=== PATIENT | female | born 1955 | race Caucasian/White ===

== ENCOUNTER 2019-07-09 13:44 | Outpatient (CLI) | payer MEDICARE, SELFPAY ==
[2019-07-09 16:53] LABS: Free T4 Free Thyroxine 0.86 ng/mL (0.78-2.19)
[2019-07-09 17:08] LABS: Thyroid Stimulating Hormone 0.254 uIU/mL (0.465-4.680)
== END 2019-07-09 13:45 | disposition home or self-care (01) ==
LOC: ANHWCLAB 13:51
PROVIDERS: PCP Family Medicine
DX: E05.90 Thyrotoxicosis, unspecified without thyrotoxic crisis or storm (principal)
CPT/HCPCS: 36415; 84439; 84443; 84481

== ENCOUNTER 2019-09-17 09:53 | Outpatient (CLI) | payer MEDICARE, SELFPAY ==
[2019-09-17 10:56] LABS: Free T4 Free Thyroxine 1.02 ng/mL (0.78-2.19)
== END 2019-09-17 09:54 | disposition home or self-care (01) ==
PROVIDERS: PCP Family Medicine; Visit Provider Internal Medicine Endocrinology, Diabetes & Metabolism
DX: E05.90 Thyrotoxicosis, unspecified without thyrotoxic crisis or storm (principal)
CPT/HCPCS: 36415; 84439; 84443

== ENCOUNTER 2019-11-12 10:03 | Outpatient (CLI) | payer MEDICARE, SELFPAY ==
[2019-11-12 11:45] LABS: Free T4 Free Thyroxine 1.24 ng/mL (0.78-2.19)
== END 2019-11-12 10:04 | disposition home or self-care (01) ==
PROVIDERS: PCP Family Medicine; Visit Provider Internal Medicine Endocrinology, Diabetes & Metabolism
DX: E05.90 Thyrotoxicosis, unspecified without thyrotoxic crisis or storm (principal)
CPT/HCPCS: 36415; 84439; 84443

== ENCOUNTER 2020-02-17 10:46 | Outpatient (CLI) | payer MEDICARE, SELFPAY ==
[2020-02-17 12:46] LABS: Free T4 Free Thyroxine 1.01 ng/mL (0.78-2.19)
[2020-02-21 08:13] LABS: Triiodothyronine T3 Free 3.2 pg/mL (2.3-4.2)
== END 2020-02-17 10:47 | disposition home or self-care (01) ==
PROVIDERS: PCP Family Medicine; Visit Provider Internal Medicine Endocrinology, Diabetes & Metabolism
DX: E05.90 Thyrotoxicosis, unspecified without thyrotoxic crisis or storm (principal); E04.9 Nontoxic goiter, unspecified
CPT/HCPCS: 36415; 84439; 84443; 84481

== ENCOUNTER 2020-03-23 12:50 | Outpatient (CLI) | payer MEDICARE, SELFPAY ==
[2020-03-25 14:37] LABS: Triiodothyronine T3 Free 3.2 pg/mL (2.3-4.2)
[2020-03-28 13:37] LABS: Thyroid Stimulating Immunoglob <89 % baseline (<140)
== END 2020-03-23 12:51 | disposition home or self-care (01) ==
LOC: ANHLAB 12:52
PROVIDERS: PCP Family Medicine; Visit Provider Internal Medicine Endocrinology, Diabetes & Metabolism
DX: E05.90 Thyrotoxicosis, unspecified without thyrotoxic crisis or storm (principal); E03.9 Hypothyroidism, unspecified; E04.9 Nontoxic goiter, unspecified
CPT/HCPCS: 36415; 84439; 84443; 84445; 84481

== ENCOUNTER 2020-05-13 10:44 | Outpatient (CLI) | payer MEDICARE, SELFPAY ==
[2020-05-13 11:26] LABS: Hematocrit 37.7 % (37.0-47.0); Hemoglobin 12.5 g/dL (12.0-15.0); Mean Corpuscular HGB Conc 33.2 g/dl (32-36); Mean Corpuscular Hemoglobin 30.5 pg (26-34); Mean Platelet Volume 9.3 fl (7.4-10.4); Platelet Count Result 347 k/mm3 (150-375); Red Cell Distribution Width 13.2 % (11.5-14.5)
[2020-05-13 11:29] LABS: Add Urine Microscopic? YES; Appearance Urine Cloudy (Clear); Bacteria Urine Trace /hpf; Bilirubin Urine Negative (Negative); Blood Urine Negative (Negative); Color Urine Yellow (Yellow); Glucose Urine UA Negative (Negative); Ketones Urine Negative (Negative); Leukocyte Esterase Ur 2+ LEU/UL (NEGATIVE); Mucus Urine Rare /lpf; Nitrate Urine Negative (Negative); Protein Urine Negative (Negative); RBC Urine 0-2 /hpf (0-2); Specific Grav Ur 1.018 (1.001-1.035); Squamous Epithelial Cell Urine Many /hpf (Few); Urobilinogen Urine Negative mg/dL (<2.0)
[2020-05-13 11:46] LABS: Alanine Aminotransferase 15 U/L (4-35); Albumin Level 3.8 g/dL (3.5-5.1); Alkaline Phosphatase 45 U/L (38-126); Anion Gap 6 mmol/L (8-16); Aspartate Amino Transferase 25 U/L (14-36); Bilirubin,Total 0.5 mg/dL (0.2-1.3); Blood Urea Nitrogen 14 mg/dL (7-17); Calcium 8.6 mg/dL (8.4-10.2); Carbon Dioxide 28 mmol/L (22-30); Chloride 107 mmol/L (98-107); Cholesterol 174 mg/dL (0-200); Estimated Glomerular Filt Rate > 60; Glucose 94 mg/dL (65-105); HDL Direct 46 mg/dL; Sodium 141 mmol/L (137-145); Triglycerides 111 mg/dL (<150)
[2020-05-13 11:57] LABS: LDL Cholesterol Direct 101 mg/dL
[2020-05-13 12:44] LABS: Free T4 Free Thyroxine 1.13 ng/mL (0.78-2.19)
== END 2020-05-13 10:45 | disposition home or self-care (01) ==
PROVIDERS: PCP Family Medicine; Visit Provider Internal Medicine Endocrinology, Diabetes & Metabolism
DX: E03.9 Hypothyroidism, unspecified (principal); R53.83 Other fatigue; D64.9 Anemia, unspecified; E78.2 Mixed hyperlipidemia
CPT/HCPCS: 36415; 80053; 80061; 81001; 84439; 84443; 85027

== ENCOUNTER 2020-08-11 10:05 | Outpatient (CLI) | payer MEDICARE, SELFPAY ==
[2020-08-11 11:45] LABS: Free T4 Free Thyroxine 1.25 ng/mL (0.78-2.19)
== END 2020-08-11 10:06 | disposition home or self-care (01) ==
LOC: ANHLAB 10:13
PROVIDERS: PCP Family Medicine; Visit Provider Internal Medicine Endocrinology, Diabetes & Metabolism
DX: E03.9 Hypothyroidism, unspecified (principal); E05.90 Thyrotoxicosis, unspecified without thyrotoxic crisis or storm
CPT/HCPCS: 36415; 84439; 84443

== ENCOUNTER 2020-09-07 14:32 | Outpatient (CLI) | payer MEDICARE, SELFPAY ==
[2020-09-07 15:41] LABS: Rheumatoid Factor < 8.6 IU/ML (<12)
[2020-09-13 09:16] LABS: Anti Cyclic Citrullinated Pept <16 Units (<20)
== END 2020-09-07 14:33 | disposition home or self-care (01) ==
PROVIDERS: PCP Family Medicine; Visit Provider Family Medicine
DX: M25.50 Pain in unspecified joint (principal)
CPT/HCPCS: 36415; 86200; 86430

== ENCOUNTER 2020-10-05 14:49 | Outpatient (CLI) | payer MEDICARE, SELFPAY ==
--- NOTE | ~2020-10-05 | XR_ITS ---
EXAMINATION: XR hand BI arthritis min 3V EXAM DATE: 10/05/2020 15:17 INDICATION: Bilateral hand pain, osteoarthritis. TECHNIQUE: Right hand frontal, lateral and oblique projections obtained and reviewed. Left hand fron lisa, lateral and oblique projections obtained and reviewed. Catchers projection of both hands. There is no prior study for comparison. FINDINGS: Right hand: There is severe 1st carpometacarpal primary osteoarthritis. Otherwise mild to moderate p olyarticular osteoarthritis. There is ulnar minus variance. There are no bony erosions identified. Th ere are no acute fractures identified. Left hand: There is severe 1st carpometacarpal primary osteoarthritis. Otherwise mild to moderate lion yarticular primary osteoarthritis. There is ulnar minus variance. There are no bony erosions identifi ed. There are no acute fractures identified. IMPRESSION: 1. Bilateral hand polyarticular osteoarthritis, severe at the 1st carpometacarpal joints. 2. Bilateral ulnar minus variance. Reviewed, dictated and finalized at location A. IMPRESSION: 1. Bilateral hand polyarticular osteoarthritis, severe at the 1st carpometacar pal joints. 2. Bilateral ulnar minus variance.
== END 2020-10-05 14:50 | disposition home or self-care (01) ==
LOC: ANHIMG 14:57
PROVIDERS: PCP Family Medicine; Visit Provider Plastic Surgery
DX: M19.041 Primary osteoarthritis, right hand (principal); M19.042 Primary osteoarthritis, left hand
CPT/HCPCS: 73130

== ENCOUNTER 2021-02-22 08:15 | Outpatient (CLI) | payer MEDICARE, SELFPAY ==
[2021-02-22 08:39] LABS: Hemoglobin 12.6 g/dL (12.0-15.0); Mean Corpuscular HGB Conc 32.3 g/dl (32-36); Mean Corpuscular Hemoglobin 29.2 pg (26-34); Mean Corpuscular Volume 90.5 fl (80-100); Mean Platelet Volume 9.4 fl (7.4-10.4); Platelet Count Result 288 k/mm3 (150-375); Red Blood Count 4.31 M/mm3 (4.2-5.4); Red Cell Distribution Width 13.8 % (11.5-14.5); White Blood Count 5.9 K/mm3 (4.5-10.0)
[2021-02-22 08:46] LABS: Add Urine Microscopic? YES; Appearance Urine Clear (Clear); Bilirubin Urine Negative (Negative); Blood Urine 1+ (Negative); Color Urine Yellow (Yellow); Glucose Urine UA Negative (Negative); Ketones Urine Negative (Negative); Leukocyte Esterase Ur 1+ LEU/UL (NEGATIVE); Mucus Urine Rare /lpf; Nitrate Urine Negative (Negative); Protein Urine Negative (Negative); Specific Grav Ur 1.017 (1.001-1.035); Squamous Epithelial Cell Urine Few /hpf (Few); Urobilinogen Urine Negative mg/dL (<2.0); WBC Urine 0-3 /hpf (0-3)
[2021-02-22 08:53] LABS: Alanine Aminotransferase 21 U/L (4-35); Albumin Level 4.4 g/dL (3.5-5.1); Alkaline Phosphatase 52 U/L (38-126); Anion Gap 8 mmol/L (8-16); Aspartate Amino Transferase 28 U/L (14-36); Bilirubin,Total 0.6 mg/dL (0.2-1.3); Blood Urea Nitrogen 15 mg/dL (7-17); Carbon Dioxide 28 mmol/L (22-30); Chloride 105 mmol/L (98-107); Cholesterol 160 mg/dL (0-200); Estimated Glomerular Filt Rate > 60; Glucose 102 mg/dL (65-110); HDL Direct 52 mg/dL; Potassium 4.2 mmol/L (3.4-5.0); Sodium 141 mmol/L (137-145); Triglycerides 74 mg/dL (<150)
[2021-02-22 09:03] LABS: LDL Cholesterol Direct 86 mg/dL
[2021-02-22 09:22] LABS: Free T4 Free Thyroxine 1.54 ng/mL (0.78-2.19)
[2021-02-22 09:23] LABS: Thyroid Stimulating Hormone < 0.015 uIU/mL (0.465-4.680); Total Triiodothyronine (T3) 1.58 NG/ML (0.97-1.69)
== END 2021-02-22 08:16 | disposition home or self-care (01) ==
PROVIDERS: PCP Family Medicine; Referring Provider Family Medicine; Visit Provider Internal Medicine Endocrinology, Diabetes & Metabolism
DX: E05.90 Thyrotoxicosis, unspecified without thyrotoxic crisis or storm (principal); I10 Essential (primary) hypertension; R53.83 Other fatigue; Z00.00 Encounter for general adult medical examination without abnormal findings
CPT/HCPCS: 36415; 80053; 80061; 81001; 84439; 84443; 84480; 85027

== ENCOUNTER 2021-04-26 10:14 | Outpatient (CLI) | payer MEDICARE, SELFPAY ==
[2021-04-26 11:19] LABS: Free T4 Free Thyroxine 1.22 ng/mL (0.78-2.19)
[2021-04-26 11:26] LABS: Thyroid Stimulating Hormone < 0.015 uIU/mL (0.465-4.680)
== END 2021-04-26 10:15 | disposition home or self-care (01) ==
PROVIDERS: PCP Family Medicine; Visit Provider Internal Medicine Endocrinology, Diabetes & Metabolism
DX: E05.90 Thyrotoxicosis, unspecified without thyrotoxic crisis or storm (principal)
CPT/HCPCS: 36415; 84439; 84443

== ENCOUNTER 2021-05-31 09:12 | Outpatient (CLI) | payer MEDICARE, SELFPAY ==
[2021-05-31 10:51] LABS: Free T4 Free Thyroxine 0.91 ng/mL (0.78-2.19)
[2021-06-04 13:22] LABS: Triiodothyronine T3 Free 3.2 pg/mL (2.3-4.2)
== END 2021-05-31 09:13 | disposition home or self-care (01) ==
PROVIDERS: PCP Family Medicine; Visit Provider Internal Medicine Endocrinology, Diabetes & Metabolism
DX: E05.90 Thyrotoxicosis, unspecified without thyrotoxic crisis or storm (principal); E04.9 Nontoxic goiter, unspecified
CPT/HCPCS: 36415; 84439; 84443; 84481

== ENCOUNTER 2021-08-24 11:22 | Outpatient (CLI) | payer MEDICARE, SELFPAY ==
[2021-08-24 13:19] LABS: Total Triiodothyronine (T3) 1.19 NG/ML (0.97-1.69)
[2021-08-24 20:20] LABS: Free T4 Free Thyroxine 1.17 ng/mL (0.78-2.19)
== END 2021-08-24 11:23 | disposition home or self-care (01) ==
PROVIDERS: PCP Family Medicine; Visit Provider Internal Medicine Endocrinology, Diabetes & Metabolism
DX: E05.90 Thyrotoxicosis, unspecified without thyrotoxic crisis or storm (principal)
CPT/HCPCS: 36415; 84439; 84443; 84480

== ENCOUNTER 2021-10-17 10:35 | Outpatient (CLI) | payer MEDICARE, SELFPAY ==
[2021-10-17 11:38] LABS: Total Triiodothyronine (T3) 1.25 NG/ML (0.97-1.69)
[2021-10-17 11:57] LABS: Free T4 Free Thyroxine 1.24 ng/mL (0.78-2.19)
== END 2021-10-17 10:36 | disposition home or self-care (01) ==
LOC: ANHLAB 10:36
PROVIDERS: PCP Family Medicine; Visit Provider Nurse Practitioner Family
DX: E05.90 Thyrotoxicosis, unspecified without thyrotoxic crisis or storm (principal)
CPT/HCPCS: 36415; 84439; 84443; 84480

== ENCOUNTER 2022-03-29 09:43 | Outpatient (CLI) | payer MEDICARE, SELFPAY ==
[2022-03-29 10:20] LABS: Basophils Absolute Auto 0.1 K/mm3 (0.0-0.1); Basophils Percent Auto 1.7 % (0.2-1.2); Eosinophils Absolute Auto 0.1 K/mm3 (0-0.3); Eosinophils Percent Auto 1.2 % (0-4.4); Hematocrit 39.8 % (37.0-47.0); Hemoglobin 12.9 g/dL (12.0-15.0); Immature Granulocyte Absolute 0.02 K/mm3 (0.00-0.031); Immature Granulocyte Percent A 0.3 % (0-0.5); Lymphocytes Percent Auto 26.8 % (18.3-44.2); Mean Corpuscular HGB Conc 32.4 g/dl (32-36); Mean Corpuscular Hemoglobin 29.9 pg (26-34); Mean Corpuscular Volume 92.1 fl (80-100); Mean Platelet Volume 9.5 fl (7.4-10.4); Monocytes Absolute Auto 0.4 K/mm3 (0.1-0.6); Monocytes Percent Auto 6.2 % (2.6-8.5); Neutrophils Absolute Auto 3.8 K/mm3 (1.3-6.7); Neutrophils Percent Auto 63.8 % (45.5-73.1); Platelet Count Result 351 k/mm3 (150-375); Red Blood Count 4.32 M/mm3 (4.2-5.4); Red Cell Distribution Width 13.8 % (11.5-14.5)
[2022-03-29 10:43] LABS: Appearance Urine Cloudy (Clear); Bilirubin Urine Negative (Negative); Blood Urine Trace-lysed (Negative); Color Urine Yellow (Yellow); Glucose Urine UA Negative (Negative); Ketones Urine Negative (Negative); Leukocyte Esterase Ur 2+ LEU/UL (NEGATIVE); Nitrate Urine Negative (Negative); Protein Urine Negative (Negative); Urobilinogen Urine 0.2 mg/dL (<2.0)
[2022-03-29 10:57] LABS: Bacteria Urine Trace /hpf; Mucus Urine Rare /lpf; Squamous Epithelial Cell Urine Occasional /hpf (Few); WBC Urine >75 /hpf (0-3)
[2022-03-29 11:22] LABS: Free T4 Free Thyroxine 1.15 ng/mL (0.78-2.19)
[2022-03-29 11:44] LABS: Add Urine Microscopic? YES
[2022-03-29 16:59] LABS: Alanine Aminotransferase 19 U/L (6-35); Albumin Level 4.4 g/dL (3.5-5.1); Alkaline Phosphatase 55 U/L (38-126); Anion Gap 8 mmol/L (8-16); Aspartate Amino Transferase 30 U/L (14-36); Bilirubin,Total 0.6 mg/dL (0.2-1.3); Blood Urea Nitrogen 18 mg/dL (7-17); Calcium 8.6 mg/dL (8.4-10.2); Carbon Dioxide 27 mmol/L (22-30); Chloride 103 mmol/L (98-107); Cholesterol 181 mg/dL (0-200); Estimated Glomerular Filt Rate > 60; Glucose 94 mg/dL (65-110); HDL Direct 50 mg/dL; Potassium 4.4 mmol/L (3.4-5.0); Sodium 138 mmol/L (137-145); Triglycerides 56 mg/dL (<150)
[2022-03-29 17:10] LABS: LDL Cholesterol Direct 97 mg/dL
[2022-03-29 17:30] LABS: Total Triiodothyronine (T3) 1.22 NG/ML (0.97-1.69)
== END 2022-03-29 09:44 | disposition home or self-care (01) ==
LOC: ANHLAB 09:45
PROVIDERS: PCP Family Medicine; Visit Provider Nurse Practitioner Family
DX: E05.90 Thyrotoxicosis, unspecified without thyrotoxic crisis or storm (principal); I10 Essential (primary) hypertension; E03.9 Hypothyroidism, unspecified; N39.0 Urinary tract infection, site not specified; E78.2 Mixed hyperlipidemia
CPT/HCPCS: 36415; 80053; 80061; 81001; 84439; 84443; 84480; 85025

== ENCOUNTER 2022-07-05 10:45 | Outpatient (CLI) | payer MEDICARE, SELFPAY ==
--- NOTE | ~2022-07-05 | XR_ITS ---
Clinical Indication: Relapsing polychondritis PA and lateral views of the chest: Comparison: None Findings: The lungs are clear, without evidence of focal consolidation or pleural effusion. Possible COPD. Cardiomediastinal silhouette is within normal limits. Bones and soft tissues are unremarkable. Impression: Clear lungs. Possible COPD. Reviewed, dictated and finalized at location . RINTENDENT SYSTEM OPERATION Impression: Clear lungs. Possible COPD.
== END 2022-07-05 10:46 | disposition home or self-care (01) ==
LOC: ANHIMG 10:48
PROVIDERS: PCP Family Medicine; Visit Provider Internal Medicine
DX: M94.1 Relapsing polychondritis (principal); M15.9 Polyosteoarthritis, unspecified; Z71.89 Other specified counseling; Z79.899 Other long term (current) drug therapy
CPT/HCPCS: 71046

== ENCOUNTER 2022-07-31 08:36 | Outpatient (CLI) | payer MEDICARE, SELFPAY ==
[2022-07-31 09:06] LABS: Hematocrit 34.3 % (37.0-47.0); Hemoglobin 11.3 g/dL (12.0-15.0); Mean Corpuscular HGB Conc 32.9 g/dl (32-36); Mean Corpuscular Hemoglobin 28.8 pg (26-34); Mean Corpuscular Volume 87.5 fl (80-100); Mean Platelet Volume 9.5 fl (7.4-10.4); Platelet Count Result 310 k/mm3 (150-375); Red Blood Count 3.92 M/mm3 (4.2-5.4); Red Cell Distribution Width 14.4 % (11.5-14.5); White Blood Count 7.7 K/mm3 (4.5-10.0)
[2022-07-31 09:10] LABS: Appearance Urine Clear (Clear); Bacteria Urine 4+ /hpf; Bilirubin Urine Negative (Negative); Blood Urine Negative (Negative); Color Urine Yellow (Yellow); Glucose Urine UA Negative (Negative); Ketones Urine Negative (Negative); Leukocyte Esterase Ur 1+ LEU/UL (Negative); Nitrate Urine Positive (Negative); Non Pathogenic Casts 0-2; Protein Urine Trace mg/dL (Negative); RBC Urine 0-2 /hpf (0-2); Specific Grav Ur 1.015 (1.001-1.035); Squamous Epithelial Cell Urine None seen /hpf (Few); Urobilinogen Urine 0.2 mg/dL (<2.0); WBC Urine 21-50 /hpf; pH Urine 6.5 (5.0-9.0)
[2022-07-31 09:14] LABS: Add Urine Microscopic? YES
[2022-07-31 09:21] LABS: Alanine Aminotransferase 24 U/L (6-35); Alkaline Phosphatase 73 U/L (38-126); Anion Gap 5 mmol/L (8-16); Aspartate Amino Transferase 30 U/L (14-36); Bilirubin,Total 0.7 mg/dL (0.2-1.3); Blood Urea Nitrogen 15 mg/dL (7-17); CRP 8.2 mg/dL (<1.0); Calcium 8.3 mg/dL (8.4-10.2); Carbon Dioxide 29 mmol/L (22-30); Chloride 106 mmol/L (98-107); Estimated Glomerular Filt Rate > 60; Glucose 96 mg/dL (65-110); Potassium 4.2 mmol/L (3.4-5.0); Sodium 140 mmol/L (137-145)
[2022-07-31 09:26] LABS: Complement C3 116 mg/dL (88-165)
[2022-07-31 09:32] LABS: Rheumatoid Factor 14.9 IU/ML (<12)
[2022-07-31 09:35] LABS: T4 Thyroxine 8.95 ug/dL (5.53-11.0)
[2022-07-31 09:45] LABS: Erythrocyte Sedimentation Rate 38 mm/hr (0-20)
[2022-07-31 09:49] LABS: Thyroid Stimulating Hormone 0.849 uIU/mL (0.465-4.680); Total Triiodothyronine (T3) 1.26 NG/ML (0.97-1.69)
[2022-07-31 09:56] LABS: Hepatitis B Surface Antigen Negative (Negative)
[2022-07-31 10:13] LABS: Hepatitis B Surface Anti Res Negative; Hepatitis C Virus Antibody Negative (Negative)
[2022-08-03 05:13] LABS: Anti Cyclic Citrullinated Pept <16 Units (<20)
[2022-08-06 06:04] LABS: Anti Nuclear Antibody Pattern Nuclear, Speckled; Anti Nuclear Antibody Titer 1:40 (Negative)
== END 2022-07-31 08:37 | disposition home or self-care (01) ==
PROVIDERS: Nurse Practitioner Family; PCP Family Medicine; Visit Provider Internal Medicine
DX: M94.1 Relapsing polychondritis (principal); M15.9 Polyosteoarthritis, unspecified; Z71.89 Other specified counseling; Z79.899 Other long term (current) drug therapy; E05.90 Thyrotoxicosis, unspecified without thyrotoxic crisis or storm
CPT/HCPCS: 36415; 80053; 81001; 84436; 84443; 84480; 85027; 85652; 86038; 86039; 86140; 86160; 86200; 86430; 86706; 86803; 87077; 87086; 87186; 87340

== ENCOUNTER 2022-09-27 09:33 | Outpatient (CLI) | payer MEDICARE, SELFPAY ==
[2022-09-27 10:06] LABS: Basophils Absolute Auto 0.1 K/mm3 (0.0-0.1); Basophils Percent Auto 1.1 % (0.2-1.2); Eosinophils Absolute Auto 0.1 K/mm3 (0-0.3); Eosinophils Percent Auto 1.3 % (0-4.4); Hemoglobin 11.6 g/dL (12.0-15.0); Immature Granulocyte Absolute 0.01 K/mm3 (0.00-0.031); Immature Granulocyte Percent A 0.2 % (0-0.5); Lymphocytes Absolute Auto 1.36 K/mm3 (0.9-3.2); Lymphocytes Percent Auto 22.3 % (18.3-44.2); Mean Corpuscular HGB Conc 32.2 g/dl (32-36); Mean Corpuscular Hemoglobin 29.6 pg (26-34); Mean Corpuscular Volume 91.8 fl (80-100); Mean Platelet Volume 9.5 fl (7.4-10.4); Monocytes Absolute Auto 0.6 K/mm3 (0.1-0.6); Monocytes Percent Auto 9.3 % (2.6-8.5); Neutrophils Percent Auto 65.8 % (45.5-73.1); Platelet Count Result 292 k/mm3 (150-375); Red Blood Count 3.92 M/mm3 (4.2-5.4); Red Cell Distribution Width 16.7 % (11.5-14.5); White Blood Count 6.1 K/mm3 (4.5-10.0)
[2022-09-27 10:13] LABS: Appearance Urine Clear (Clear); Bacteria Urine None Seen /hpf; Bilirubin Urine Negative (Negative); Blood Urine Negative (Negative); Color Urine Yellow (Yellow); Glucose Urine UA Negative (Negative); Ketones Urine Negative (Negative); Leukocyte Esterase Ur 1+ LEU/UL (Negative); Nitrate Urine Negative (Negative); Non Pathogenic Casts 0-2; Protein Urine Negative (Negative); RBC Urine 0-2 /hpf (0-2); Specific Grav Ur 1.018 (1.001-1.035); Squamous Epithelial Cell Urine Occasional /hpf (Few); Urobilinogen Urine 0.2 mg/dL (<2.0); pH Urine 5.5 (5.0-9.0)
[2022-09-27 10:17] LABS: Creatinine Urine 115.5 mg/dL
[2022-09-27 10:22] LABS: Total Protein Urine Random < 5 mg/dL
[2022-09-27 10:23] LABS: Ur Ttl Prot Creatinine Ratio < 0.04 mg/mg (0-0.20)
[2022-09-27 10:28] LABS: Alanine Aminotransferase 18 U/L (6-35); Albumin Level 4.2 g/dL (3.5-5.1); Alkaline Phosphatase 47 U/L (38-126); Anion Gap 3 mmol/L (8-16); Aspartate Amino Transferase 23 U/L (14-36); Bilirubin,Total 0.5 mg/dL (0.2-1.3); Blood Urea Nitrogen 19 mg/dL (7-17); CRP < 0.5 mg/dL (<1.0); Calcium 8.6 mg/dL (8.4-10.2); Carbon Dioxide 30 mmol/L (22-30); Chloride 104 mmol/L (98-107); Estimated Glomerular Filt Rate > 60; Glucose 72 mg/dL (65-110); Potassium 3.9 mmol/L (3.4-5.0); Sodium 137 mmol/L (137-145)
[2022-09-27 10:45] LABS: Add Urine Microscopic? YES
[2022-09-27 11:42] LABS: Erythrocyte Sedimentation Rate 15 mm/hr (0-20)
== END 2022-09-27 09:34 | disposition home or self-care (01) ==
LOC: ANHLAB 09:34
PROVIDERS: PCP Family Medicine; Visit Provider Internal Medicine
DX: M94.1 Relapsing polychondritis (principal); M19.90 Unspecified osteoarthritis, unspecified site
CPT/HCPCS: 36415; 80053; 81001; 82570; 84156; 85025; 85652; 86140; 87086; 87088

== ENCOUNTER 2022-12-17 08:42 | Outpatient (CLI) | payer MEDICARE, SELFPAY ==
[2022-12-17 09:33] LABS: Appearance Urine Cloudy (Clear); Bacteria Urine Rare /hpf; Bilirubin Urine Negative (Negative); Color Urine Yellow (Yellow); Glucose Urine UA Negative (Negative); Ketones Urine Trace mg/dL (Negative); Leukocyte Esterase Ur 2+ LEU/UL (Negative); Nitrate Urine Negative (Negative); Non Pathogenic Casts 0-2; Protein Urine Negative (Negative); Specific Grav Ur 1.022 (1.001-1.035); Squamous Epithelial Cell Urine Moderate /hpf (Few); WBC Urine 21-50 /hpf
[2022-12-17 09:35] LABS: Basophils Percent Auto 0.3 % (0.2-1.2); Eosinophils Percent Auto 0.2 % (0-4.4); Hematocrit 39.4 % (37.0-47.0); Hemoglobin 12.9 g/dL (12.0-15.0); Immature Granulocyte Absolute 0.06 K/mm3 (0.00-0.031); Immature Granulocyte Percent A 0.7 % (0-0.5); Lymphocytes Absolute Auto 1.23 K/mm3 (0.9-3.2); Lymphocytes Percent Auto 13.6 % (18.3-44.2); Mean Corpuscular HGB Conc 32.7 g/dl (32-36); Mean Corpuscular Hemoglobin 31.5 pg (26-34); Mean Corpuscular Volume 96.1 fl (80-100); Mean Platelet Volume 8.9 fl (7.4-10.4); Monocytes Absolute Auto 0.3 K/mm3 (0.1-0.6); Neutrophils Absolute Auto 7.4 K/mm3 (1.3-6.7); Neutrophils Percent Auto 82.2 % (45.5-73.1); Platelet Count Result 218 k/mm3 (150-375); Red Cell Distribution Width 16.8 % (11.5-14.5)
[2022-12-17 09:46] LABS: Alanine Aminotransferase 38 U/L (6-35); Albumin Level 3.9 g/dL (3.5-5.1); Alkaline Phosphatase 43 U/L (38-126); Anion Gap 6 mmol/L (8-16); Aspartate Amino Transferase 26 U/L (14-36); Bilirubin,Total 0.5 mg/dL (0.2-1.3); Blood Urea Nitrogen 20 mg/dL (7-17); CRP < 0.5 mg/dL (<1.0); Calcium 8.3 mg/dL (8.4-10.2); Carbon Dioxide 29 mmol/L (22-30); Chloride 102 mmol/L (98-107); Estimated Glomerular Filt Rate > 60; Glucose 146 mg/dL (65-110); Potassium 3.9 mmol/L (3.4-5.0); Sodium 137 mmol/L (137-145)
[2022-12-17 09:54] LABS: Complement C3 89 mg/dL (88-165)
[2022-12-17 10:01] LABS: Free T4 Free Thyroxine 1.29 ng/mL (0.78-2.19)
[2022-12-17 10:06] LABS: Add Urine Microscopic? YES
[2022-12-17 10:24] LABS: Total Triiodothyronine (T3) 0.83 NG/ML (0.97-1.69)
[2022-12-17 10:48] LABS: Erythrocyte Sedimentation Rate 13 mm/hr (0-20)
== END 2022-12-17 08:43 | disposition home or self-care (01) ==
PROVIDERS: Physician Assistant; PCP Family Medicine; Visit Provider Internal Medicine
DX: M94.1 Relapsing polychondritis (principal); M19.90 Unspecified osteoarthritis, unspecified site; E05.90 Thyrotoxicosis, unspecified without thyrotoxic crisis or storm
CPT/HCPCS: 36415; 80053; 81001; 84439; 84443; 84480; 85025; 85652; 86140; 86160; 87077; 87086; 87186

== ENCOUNTER 2023-03-08 10:25 | Outpatient (CLI) | payer MEDICARE, SELFPAY ==
[2023-03-08 10:45] LABS: Hematocrit 33.8 % (37.0-47.0); Hemoglobin 10.8 g/dL (12.0-15.0); Mean Corpuscular Hemoglobin 31.9 pg (26-34); Mean Corpuscular Volume 99.7 fl (80-100); Mean Platelet Volume 9.2 fl (7.4-10.4); Platelet Count Result 319 k/mm3 (150-375); Red Blood Count 3.39 M/mm3 (4.2-5.4); White Blood Count 9.8 K/mm3 (4.5-10.0)
[2023-03-08 10:52] LABS: Appearance Urine Cloudy (Clear); Bacteria Urine Rare /hpf; Bilirubin Urine Negative (Negative); Blood Urine Negative (Negative); Color Urine Yellow (Yellow); Glucose Urine UA Negative (Negative); Ketones Urine Negative (Negative); Leukocyte Esterase Ur 2+ LEU/UL (Negative); Nitrate Urine Negative (Negative); Non Pathogenic Casts 0-2; Protein Urine Negative (Negative); RBC Urine 0-2 /hpf (0-2); Specific Grav Ur 1.019 (1.001-1.035); Squamous Epithelial Cell Urine Moderate /hpf (Few); Urobilinogen Urine 0.2 mg/dL (<2.0); pH Urine 5.5 (5.0-9.0)
[2023-03-08 10:59] LABS: Alanine Aminotransferase 27 U/L (6-35); Albumin Level 3.7 g/dL (3.5-5.1); Alkaline Phosphatase 46 U/L (38-126); Anion Gap 5 mmol/L (8-16); Aspartate Amino Transferase 28 U/L (14-36); Bilirubin,Total 0.6 mg/dL (0.2-1.3); Blood Urea Nitrogen 18 mg/dL (7-17); CRP < 0.5 mg/dL (<1.0); Calcium 8.2 mg/dL (8.4-10.2); Carbon Dioxide 29 mmol/L (22-30); Chloride 104 mmol/L (98-107); Estimated Glomerular Filt Rate > 60; Glucose 90 mg/dL (65-110); Potassium 3.6 mmol/L (3.4-5.0); Sodium 138 mmol/L (137-145)
[2023-03-08 11:05] LABS: Add Urine Microscopic? YES
[2023-03-08 13:15] LABS: Erythrocyte Sedimentation Rate 34 mm/hr (0-20)
== END 2023-03-08 10:26 | disposition home or self-care (01) ==
PROVIDERS: PCP Family Medicine; Visit Provider Internal Medicine
DX: M94.1 Relapsing polychondritis (principal); M19.90 Unspecified osteoarthritis, unspecified site; Z79.899 Other long term (current) drug therapy
CPT/HCPCS: 36415; 80053; 81001; 85027; 85652; 86140; 87077; 87086; 87186

== ENCOUNTER 2023-04-15 07:19 | Outpatient (CLI) | payer MEDICARE, SELFPAY ==
[2023-04-15 08:00] LABS: Hematocrit 37.3 % (37.0-47.0); Hemoglobin 11.7 g/dL (12.0-15.0); Mean Corpuscular HGB Conc 31.4 g/dl (32-36); Mean Corpuscular Hemoglobin 31.7 pg (26-34); Mean Corpuscular Volume 101.1 fl (80-100); Mean Platelet Volume 9.2 fl (7.4-10.4); Platelet Count Result 305 k/mm3 (150-375); Red Blood Count 3.69 M/mm3 (4.2-5.4); Red Cell Distribution Width 14.4 % (11.5-14.5); White Blood Count 9.1 K/mm3 (4.5-10.0)
[2023-04-15 08:06] LABS: Appearance Urine Cloudy (Clear); Bacteria Urine 4+ /hpf; Bilirubin Urine Negative (Negative); Blood Urine Negative (Negative); Color Urine Yellow (Yellow); Glucose Urine UA Negative (Negative); Ketones Urine Negative (Negative); Leukocyte Esterase Ur 2+ LEU/UL (Negative); Nitrate Urine Negative (Negative); Non Pathogenic Casts 0-2; Protein Urine Negative (Negative); RBC Urine 0-2 /hpf (0-2); Specific Grav Ur 1.013 (1.001-1.035); Squamous Epithelial Cell Urine Occasional /hpf (Few); Urobilinogen Urine 0.2 mg/dL (<2.0)
[2023-04-15 08:10] LABS: Add Urine Microscopic? YES
[2023-04-15 08:14] LABS: Cholesterol 184 mg/dL (0-200); HDL Direct 57 mg/dL; Triglycerides 75 mg/dL (<150)
[2023-04-15 08:18] LABS: Alanine Aminotransferase 17 U/L (6-35); Albumin Level 3.8 g/dL (3.5-5.1); Alkaline Phosphatase 37 U/L (38-126); Anion Gap 7 mmol/L (8-16); Aspartate Amino Transferase 20 U/L (14-36); Bilirubin,Total 0.6 mg/dL (0.2-1.3); Blood Urea Nitrogen 16 mg/dL (7-17); CRP < 0.5 mg/dL (<1.0); Calcium 8.5 mg/dL (8.4-10.2); Carbon Dioxide 28 mmol/L (22-30); Chloride 105 mmol/L (98-107); Estimated Glomerular Filt Rate > 60; Glucose 85 mg/dL (65-110); Potassium 3.8 mmol/L (3.4-5.0); Sodium 140 mmol/L (137-145)
[2023-04-15 08:20] LABS: Complement C3 84 mg/dL (88-165)
[2023-04-15 08:25] LABS: LDL Cholesterol Direct 92 mg/dL
[2023-04-15 08:59] LABS: Erythrocyte Sedimentation Rate 13 mm/hr (0-20)
== END 2023-04-15 07:20 | disposition home or self-care (01) ==
PROVIDERS: Physician Assistant; PCP Family Medicine; Visit Provider Internal Medicine
DX: M94.1 Relapsing polychondritis (principal); Z79.899 Other long term (current) drug therapy; M19.90 Unspecified osteoarthritis, unspecified site; Z00.00 Encounter for general adult medical examination without abnormal findings
CPT/HCPCS: 36415; 80053; 80061; 81001; 85027; 85652; 86140; 86160; 87077; 87086; 87186

== ENCOUNTER 2023-08-19 09:27 | Outpatient (CLI) | payer MEDICARE, SELFPAY ==
[2023-08-19 09:59] LABS: Hematocrit 37.5 % (37.0-47.0); Hemoglobin 12.1 g/dL (12.0-15.0); Mean Corpuscular HGB Conc 32.3 g/dl (32-36); Mean Corpuscular Hemoglobin 31.8 pg (26-34); Mean Corpuscular Volume 98.7 fl (80-100); Mean Platelet Volume 9.5 fl (7.4-10.4); Platelet Count Result 351 k/mm3 (150-375); Red Cell Distribution Width 14.8 % (11.5-14.5); White Blood Count 8.2 K/mm3 (4.5-10.0)
[2023-08-19 10:18] LABS: Alanine Aminotransferase 15 U/L (6-35); Albumin Level 4.2 g/dL (3.5-5.1); Alkaline Phosphatase 50 U/L (38-126); Anion Gap 4 mmol/L (8-16); Aspartate Amino Transferase 21 U/L (14-36); Bilirubin,Total 0.8 mg/dL (0.2-1.3); Blood Urea Nitrogen 13 mg/dL (7-17); CRP < 0.5 mg/dL (<1.0); Calcium 9.1 mg/dL (8.4-10.2); Carbon Dioxide 29 mmol/L (22-30); Chloride 103 mmol/L (98-107); Estimated Glomerular Filt Rate > 60; Glucose 99 mg/dL (65-110); Potassium 3.9 mmol/L (3.4-5.0); Sodium 136 mmol/L (137-145)
[2023-08-19 10:23] LABS: Bacteria Urine 4+ /hpf; Non Pathogenic Casts 0-2; RBC Urine 0-2 /hpf (0-2); Squamous Epithelial Cell Urine Few /hpf (Few); WBC Urine >100 /hpf (0-3)
[2023-08-19 10:32] LABS: Add Urine Microscopic? YES; Appearance Urine Cloudy (Clear); Bilirubin Urine Negative (Negative); Blood Urine Negative (Negative); Color Urine Yellow (Yellow); Glucose Urine UA Negative (Negative); Ketones Urine Negative (Negative); Leukocyte Esterase Ur 2+ LEU/UL (Negative); Nitrate Urine Positive (Negative); Protein Urine Negative (Negative); Urobilinogen Urine 0.2 mg/dL (0.2-1.0); pH Urine 5.5 (5.0-8.0)
[2023-08-19 10:35] LABS: Free T4 Free Thyroxine 1.11 ng/mL (0.78-2.19)
[2023-08-19 10:47] LABS: Total Triiodothyronine (T3) 1.18 NG/ML (0.97-1.69)
[2023-08-19 12:17] LABS: Erythrocyte Sedimentation Rate 15 mm/hr (0-20)
== END 2023-08-19 09:28 | disposition home or self-care (01) ==
PROVIDERS: PCP Family Medicine; Referring Provider Internal Medicine; Visit Provider Physician Assistant
DX: E05.90 Thyrotoxicosis, unspecified without thyrotoxic crisis or storm (principal); M94.1 Relapsing polychondritis; R89.9 Unspecified abnormal finding in specimens from other organs, systems and tissues; M19.90 Unspecified osteoarthritis, unspecified site; Z79.899 Other long term (current) drug therapy
CPT/HCPCS: 36415; 80053; 81001; 84439; 84443; 84480; 85027; 85652; 86140; 87077; 87086; 87088; 87186

== ENCOUNTER 2023-12-10 09:31 | Outpatient (CLI) | payer MEDICARE, SELFPAY ==
[2023-12-10 09:49] LABS: Basophils Absolute Auto 0.1 K/mm3 (0.0-0.1); Basophils Percent Auto 1.4 % (0.2-1.2); Eosinophils Absolute Auto 0.1 K/mm3 (0-0.3); Hematocrit 36.2 % (37.0-47.0); Hemoglobin 11.9 g/dL (12.0-15.0); Immature Granulocyte Absolute 0.02 K/mm3 (0.00-0.031); Immature Granulocyte Percent A 0.3 % (0-0.5); Lymphocytes Percent Auto 25.4 % (18.3-44.2); Mean Corpuscular HGB Conc 32.9 g/dl (32-36); Mean Corpuscular Hemoglobin 31.6 pg (26-34); Mean Corpuscular Volume 96.3 fl (80-100); Mean Platelet Volume 9.1 fl (7.4-10.4); Monocytes Absolute Auto 0.4 K/mm3 (0.1-0.6); Monocytes Percent Auto 7.3 % (2.6-8.5); Neutrophils Absolute Auto 3.8 K/mm3 (1.3-6.7); Neutrophils Percent Auto 64.6 % (45.5-73.1); Platelet Count Result 318 k/mm3 (150-375); Red Blood Count 3.76 M/mm3 (4.2-5.4); Red Cell Distribution Width 14.4 % (11.5-14.5); White Blood Count 5.9 K/mm3 (4.5-10.0)
[2023-12-10 10:04] LABS: Alanine Aminotransferase 15 U/L (6-35); Albumin Level 4.3 g/dL (3.5-5.1); Alkaline Phosphatase 44 U/L (38-126); Anion Gap 8 mmol/L (4-12); Aspartate Amino Transferase 25 U/L (14-36); Bilirubin,Total 0.7 mg/dL (0.2-1.3); Blood Urea Nitrogen 18 mg/dL (7-17); Calcium 8.9 mg/dL (8.4-10.2); Carbon Dioxide 27 mmol/L (22-30); Chloride 104 mmol/L (98-107); Estimated Glomerular Filt Rate 55; Glucose 91 mg/dL (65-110); Sodium 139 mmol/L (137-145)
== END 2023-12-10 09:32 | disposition home or self-care (01) ==
LOC: ANHLAB 09:35
PROVIDERS: PCP Family Medicine; Visit Provider Internal Medicine Rheumatology
DX: Z51.81 Encounter for therapeutic drug level monitoring (principal); Z79.631 Long term (current) use of antimetabolite agent
CPT/HCPCS: 36415; 80053; 85025

== ENCOUNTER 2024-03-05 14:57 | Outpatient (CLI) | payer MEDICARE, SELFPAY ==
[2024-03-05 16:18] LABS: Basophils Absolute Auto 0.1 K/mm3 (0.0-0.1); Basophils Percent Auto 0.8 % (0.2-1.2); Eosinophils Absolute Auto 0.1 K/mm3 (0-0.3); Eosinophils Percent Auto 0.7 % (0-4.4); Hematocrit 37.6 % (37.0-47.0); Hemoglobin 12.3 g/dL (12.0-15.0); Immature Granulocyte Absolute 0.02 K/mm3 (0.00-0.031); Immature Granulocyte Percent A 0.2 % (0-0.5); Lymphocytes Absolute Auto 1.83 K/mm3 (0.9-3.2); Lymphocytes Percent Auto 21.7 % (18.3-44.2); Mean Corpuscular HGB Conc 32.7 g/dl (32-36); Mean Corpuscular Hemoglobin 31.5 pg (26-34); Mean Corpuscular Volume 96.4 fl (80-100); Mean Platelet Volume 9.8 fl (7.4-10.4); Monocytes Absolute Auto 0.7 K/mm3 (0.1-0.6); Monocytes Percent Auto 7.7 % (2.6-8.5); Neutrophils Absolute Auto 5.8 K/mm3 (1.3-6.7); Neutrophils Percent Auto 68.9 % (45.5-73.1); Platelet Count Result 349 k/mm3 (150-375); Red Cell Distribution Width 14.3 % (11.5-14.5); White Blood Count 8.4 K/mm3 (4.5-10.0)
[2024-03-05 17:49] LABS: Alanine Aminotransferase 16 U/L (6-35); Albumin Level 4.6 g/dL (3.5-5.1); Alkaline Phosphatase 54 U/L (38-126); Anion Gap 10 mmol/L (4-12); Aspartate Amino Transferase 26 U/L (14-36); Bilirubin,Total 0.4 mg/dL (0.2-1.3); Blood Urea Nitrogen 20 mg/dL (7-17); Calcium 9.1 mg/dL (8.4-10.2); Carbon Dioxide 25 mmol/L (22-30); Chloride 101 mmol/L (98-107); Estimated Glomerular Filt Rate 49; Glucose 89 mg/dL (65-110); Potassium 3.5 mmol/L (3.4-5.0); Sodium 136 mmol/L (137-145)
== END 2024-03-05 14:58 | disposition home or self-care (01) ==
PROVIDERS: PCP Family Medicine; Visit Provider Internal Medicine Rheumatology
DX: Z51.81 Encounter for therapeutic drug level monitoring (principal); Z79.631 Long term (current) use of antimetabolite agent
CPT/HCPCS: 36415; 80053; 85025

== ENCOUNTER 2024-04-22 07:03 | Outpatient (CLI) | payer MEDICARE, SELFPAY ==
[2024-04-22 07:53] LABS: Hematocrit 37.4 % (37.0-47.0); Hemoglobin 12.3 g/dL (12.0-15.0); Mean Corpuscular HGB Conc 32.9 g/dl (32-36); Mean Corpuscular Hemoglobin 31.7 pg (26-34); Mean Corpuscular Volume 96.4 fl (80-100); Mean Platelet Volume 9.6 fl (7.4-10.4); Platelet Count Result 329 k/mm3 (150-375); Red Blood Count 3.88 M/mm3 (4.2-5.4); Red Cell Distribution Width 14.7 % (11.5-14.5); White Blood Count 5.8 K/mm3 (4.5-10.0)
[2024-04-22 08:12] LABS: Alanine Aminotransferase 18 U/L (6-35); Albumin Level 4.2 g/dL (3.5-5.1); Alkaline Phosphatase 50 U/L (38-126); Anion Gap 4 mmol/L (4-12); Aspartate Amino Transferase 26 U/L (14-36); Bilirubin,Total 0.5 mg/dL (0.2-1.3); Blood Urea Nitrogen 20 mg/dL (7-17); Calcium 8.8 mg/dL (8.4-10.2); Carbon Dioxide 30 mmol/L (22-30); Chloride 106 mmol/L (98-107); Cholesterol 174 mg/dL (0-200); Estimated Glomerular Filt Rate 55; Glucose 94 mg/dL (65-110); HDL Direct 52 mg/dL; Potassium 4.2 mmol/L (3.4-5.0); Sodium 140 mmol/L (137-145); Triglycerides 66 mg/dL (<150)
[2024-04-22 08:24] LABS: LDL Cholesterol Direct 85 mg/dL
[2024-04-22 08:25] LABS: Add Urine Microscopic? YES; Appearance Urine Cloudy (Clear); Bacteria Urine 3+ /hpf; Bilirubin Urine Negative (Negative); Blood Urine Negative (Negative); Color Urine Yellow (Yellow); Glucose Urine UA Negative (Negative); Ketones Urine Negative (Negative); Leukocyte Esterase Ur 3+ LEU/UL (Negative); Nitrate Urine Negative (Negative); Non Pathogenic Casts 0-2; Protein Urine Negative (Negative); RBC Urine 0-2 /hpf (0-2); Specific Grav Ur 1.015 (1.001-1.035); Squamous Epithelial Cell Urine Moderate /hpf (Few); Urobilinogen Urine 0.2 mg/dL (<2.0); WBC Urine 51-100 /hpf (0-3)
[2024-04-22 08:32] LABS: Free T4 Free Thyroxine 1.17 ng/mL (0.78-2.19)
[2024-04-22 08:37] LABS: Thyroid Stimulating Hormone 0.316 uIU/mL (0.465-4.680); Total Triiodothyronine (T3) 1.23 NG/ML (0.97-1.69)
== END 2024-04-22 07:04 | disposition home or self-care (01) ==
LOC: ANHLAB 07:05
PROVIDERS: PCP Family Medicine; Visit Provider Physician Assistant
DX: E05.90 Thyrotoxicosis, unspecified without thyrotoxic crisis or storm (principal); I10 Essential (primary) hypertension
CPT/HCPCS: 36415; 80053; 80061; 81001; 84439; 84443; 84480; 85027

== ENCOUNTER 2024-05-22 14:17 | Outpatient (CLI) | payer MEDICARE, SELFPAY ==
--- NOTE | ~2024-05-22 | DEXA_ITS ---
Bone Density Report Name: ROBERTO WHEATLEY Age: 68 Sex: Female Ethnicity: White Date of : 1955 Indication: postmenopausal; screening for osteoporosis; asthma or emphysema; Referring Provider: HILARIO, CARRINGTON Alcazar Study: Bone densitometry was performed. Exam Date: May 22, 2024 Accession number: [id number] Bone Density: Region BMD T-score Z-score Classification AP Spine(L1-L4) 0.956 -0.8 1.3 Normal Femoral Neck (Left) 0.693 -1.4 0.4 Osteopenia Total Hip (Left) 0.878 -0.5 1.0 Normal Femoral Neck (Right) 0.718 -1.2 0.6 Osteopenia Total Hip (Right) 0.925 -0.1 1.4 Normal Total Hip Mean 0.901 -0.3 1.2 Normal World Health Organization criteria for BMD impression classify patients as: Normal (T-score at or above -1.0), Osteopenia (T-score between -1.0 and -2.5), or Osteoporosis (T-score at or below -2.5). 10-year Fracture Risk(1): Major Osteoporotic Fracture 8.8% Hip Fracture 1.3% Reported Risk Factors: [place] (), Neck BMD=0.693, BMI=20.8 (1) FRAX(R) Version 3.08. Fracture probability calculated for an untreated patient. Fracture probability may be lower if the patient has received treatment. Clinical Information Provided by Patient: Has the following medical conditions: Asthma or Emphysema Patient maximum height was 67 Menopause Age: 41 No regular weight bearing exercise Does not regularly consume dairy products Drinks caffeinated beverages Onset of menses at age 14 Number of children 2 Impression: The patient has low bone mass, based on the Left Femoral Neck T-score. The patient has an estimated ten-year risk of hip fracture of 1.3% and an estimated ten-year risk of major fracture of 8.8%, based on the WHO FRAX algorithm. Discussion: BONE DENSITY IS LOW AT ONE OR MORE SKELETAL SITES. This patient's lowest T-score is low at one or more skeletal sites. It meets the World Health Organization's (WHO) criteria for ?low bone mass? (T-score between -1.0 and -2.5). The patient's 10-year risk of fracture as calculated by FRAX is less than the threshold where pharmacological therapy is recommended by the National Osteoporosis Foundation (NOF). However, all treatment decisions require clinical judgment and consideration of individual patient factors, including patient preferences, comorbidities, previous drug use, risk factors not captured in the FRAX model (e.g., frailty, falls, vitamin D deficiency, increased bone turnover, interval significant decline in bone density) and possible under or overestimation of fracture risk by FRAX. The patient should follow a healthful lifestyle (good nutrition with adequate calcium and vitamin D, and appropriate weight-bearing exercise). Follow-Up: Consider repeating this study in 2 to 3 years to reassess this patient's status, or sooner if there is some new clinical indication. Reported by: CHARLES on 05/22/2024 3:48:00 PM. Reviewed, dictated and finalized at location ACarlee LOPEZ
== END 2024-05-22 14:18 | disposition home or self-care (01) ==
PROVIDERS: PCP Family Medicine; Visit Provider Internal Medicine Rheumatology
DX: Z13.820 Encounter for screening for osteoporosis (principal); Z79.52 Long term (current) use of systemic steroids; M85.852 Other specified disorders of bone density and structure, left thigh; M85.851 Other specified disorders of bone density and structure, right thigh
CPT/HCPCS: 77080

== ENCOUNTER 2024-06-15 10:18 | Outpatient (CLI) | payer MEDICARE, SELFPAY ==
[2024-06-15 10:53] LABS: Basophils Absolute Auto 0.1 K/mm3 (0.0-0.1); Basophils Percent Auto 0.8 % (0.2-1.2); Eosinophils Absolute Auto 0.1 K/mm3 (0-0.3); Eosinophils Percent Auto 1.1 % (0-4.4); Hematocrit 34.4 % (37.0-47.0); Hemoglobin 11.5 g/dL (12.0-15.0); Immature Granulocyte Absolute 0.01 K/mm3 (0.00-0.031); Immature Granulocyte Percent A 0.2 % (0-0.5); Lymphocytes Absolute Auto 1.31 K/mm3 (0.9-3.2); Lymphocytes Percent Auto 20.1 % (18.3-44.2); Mean Corpuscular HGB Conc 33.4 g/dl (32-36); Mean Corpuscular Hemoglobin 32.4 pg (26-34); Mean Corpuscular Volume 96.9 fl (80-100); Mean Platelet Volume 9.4 fl (7.4-10.4); Monocytes Absolute Auto 0.5 K/mm3 (0.1-0.6); Monocytes Percent Auto 7.5 % (2.6-8.5); Neutrophils Absolute Auto 4.6 K/mm3 (1.3-6.7); Neutrophils Percent Auto 70.3 % (45.5-73.1); Platelet Count Result 318 k/mm3 (150-375); Red Blood Count 3.55 M/mm3 (4.2-5.4); Red Cell Distribution Width 14.2 % (11.5-14.5); White Blood Count 6.5 K/mm3 (4.5-10.0)
[2024-06-15 11:04] LABS: Alanine Aminotransferase 19 U/L (6-35); Albumin Level 4.1 g/dL (3.5-5.1); Alkaline Phosphatase 54 U/L (38-126); Anion Gap 8 mmol/L (4-12); Aspartate Amino Transferase 24 U/L (14-36); Bilirubin,Total 0.8 mg/dL (0.2-1.3); Blood Urea Nitrogen 22 mg/dL (7-17); Calcium 8.7 mg/dL (8.4-10.2); Carbon Dioxide 26 mmol/L (22-30); Chloride 106 mmol/L (98-107); Estimated Glomerular Filt Rate 53; Glucose 96 mg/dL (65-110); Potassium 3.7 mmol/L (3.4-5.0); Sodium 140 mmol/L (137-145)
== END 2024-06-15 10:19 | disposition home or self-care (01) ==
PROVIDERS: PCP Family Medicine; Visit Provider Internal Medicine Rheumatology
DX: Z51.81 Encounter for therapeutic drug level monitoring (principal); Z79.631 Long term (current) use of antimetabolite agent
CPT/HCPCS: 36415; 80053; 85025

== ENCOUNTER 2024-09-17 09:35 | Outpatient (CLI) | payer MEDICARE, SELFPAY ==
--- OUTSIDE RECORDS SUMMARY | 2024-09-17 10:28 | XMS_ITS | Clinical Summary ---
Author Organization [facility] Address [address] [place] [id number] Care Team Providers Care New Accounts Clerk Name Role Phone Agus Bolaños MD Primary Care Provider Encounters Date Type Department Care Team Description 08/06/2024 9:53 AM CDT - 08/06/2024 11:59 PM CDT Hospital Encounter [facility] [address] [place] [address] [phone] Screening mammogram, encounter for Discharge Disposition: Discharge to home or self care from Last 3 Months Family History Medical History Relation Name Comments Breast cancer Mother's Sister 1 Breast cancer Mother's Sister 2 Relation Name Status Comments Mother's Sister 1 Mother's Sister 2 Social History Tobacco Use Types Packs/Day Years Used Date Smoking Tobacco: Never Assessed Comments No Sex and Gender Information Value Date Recorded Sex Assigned at Not on file Legal Sex Female 6:08 PM 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 Gender Identity Not on file Sexual Orientation Not on file Obstetrics History Para Term AB IAB SAB Ectopic Multiple Livin g Live Births 2 2 2 Date Outcome GA Total Labor Labor/2nd/3rd Weight Sex Type Anes PTL Kyara A1 A5 Name Clin Term Term Plan of Treatment Health Maintenance Due Date Last Done Comments Colon Cancer Screening-Colonoscopy 1955 Depression Screening 1955 Fall Risk Assessment 1955 Hepatitis C Screening 1955 DTaP/Tdap/Td Vaccine (1 - Tdap) 1964 Hepatitis B Screening 10/31/1971 Zoster Vaccine (1 of 2) 10/31/2003 Well Visit 65+ 2018 Covid-19 Vaccine (3 - 4-2 5 season) 2024 09/01/2020, 08/04/2020 Influenza Vaccine (#1) 2024 , 03/10/2020, 02/11/2019, Additional history exists Breast Cancer Screening-Mammogram 08/06/2025 08/06/2024, 06/27/2023, 06/21/2022, Additional history exists Osteoporosis Screening-Bone Density Scan 05/22/2026 05/22/2024, 05/22/2024 Pneumococcal vaccine 65+ Completed 03/04/2019, 08/2017 Procedures Procedure Name Priority Date/Time Associated Diagnosis Comments SCREENING MAMMOGRAM BILATERAL W KAMALJIT Schedule Routine, Read Routine (OP Routine) 08/06/2024 10:09 AM CDT Screening mammogram, encounter for from Last 3 Months Results * Screening Mammogram Bilateral W Kamaljit (08/06/2024 10:09 AM CDT) Anatomical Region Laterality Modality Breast Bilateral Mammography Impressions 08/06/2024 10:17 AM CDT BI-RADS ATLAS category (overall): 2 - Benign There is no mammographic evidence of malignancy. A 1 year screening mammogram is recommended. The patient has been or will be contacted. We recommend annual screening mammography for women at average risk of breast cancer beginning at age 40, based on guidelines of the [employer] [place] [employer] (ACR Practice Parameter for the Performance of Screening and Diagnostic Mammography) and [place]. For women with and elevated risk of breast cancer, please refer to the ACR Practice Parameter for specific screening recommendations. The patient will be entered into a reminder system with a target due date of 1 year for her next screening exam. Narrative 08/06/2024 10:17 AM CDT Screening Mammogram Bilateral W Kamaljit: 08/06/24 The study was acquired using full field digital technology and interpreted from soft copy. 2D digital mammographic views, as well as 3D digital tomosynthesis were performed in the CC and MLO projections. CLINICAL: Screening mammogram, encounter for. No relevant medical history has been documented for this patient. History of breast cancer in Mother's Sister, Mother's Sister. COMPARISONS: 06/27/2023 Screening Mammogram Bilateral W Kamaljit 06/21/2022 Screening Mammogram Bilateral W Kamaljit 06/14/2021 Screening Mammogram Bilateral W Kamaljit 06/08/2020 Screening Mammogram 2D Bilateral 06/03/2019 Screening Mammogram Bilateral W Kamaljit BREAST TISSUE: The breasts are heterogeneously dense, which may obscure small masses. FINDINGS: There are unchanged benign microcalcifications in both breasts. There is no new suspicious finding in either breast on mammogram. Agus Bolaños MD IMG MAMMO PROCEDURES Fi nal Result from Last 3 Months Insurance [facility] MDCR HMO REF Care Teams New Accounts Clerk Relationship Specialty Start Date End Date Agus Bolaños MD [address] [facility] [address] [place] [address] PCP - General 06/03/19
--- OUTSIDE RECORDS SUMMARY | 2024-09-17 10:28 | XMS_ITS | Referral Summary ---
Author Organization [facility] Address [address] [place] [id number] Care Team Providers Care Addressograph Operator Name Role Phone Agus Bolaños MD Primary Care Provider Encounters Date Type Department Care Team Description 08/06/2024 9:53 AM CDT - 08/06/2024 11:59 PM CDT Hospital Encounter [facility] [address] [place] [address] [phone] Screening mammogram, encounter for Discharge Disposition: Discharge to home or self care from Last 3 Months Social History Tobacco Use Types Packs/Day Years Used Date Smoking Tobacco: Never Assessed Comments No Sex and Gender Information Value Date Recorded Sex Assigned at Not on file Legal 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 For women [...] nal Result from Last 3 Months Insurance [facility] MDCR HMO REF Care Teams Addressograph Operator Relationship Specialty Start Date End Date Agus Bolaños MD [address] [facility] [address] [place] [address] PCP - General 06/03/19
--- OUTSIDE RECORDS SUMMARY | 2024-09-17 10:29 | XMS_ITS | Clinical Summary ---
Author Organization [email or web address] Address [address] [facility] [place] [address] Care Team Providers Care Acid Dumper Name Role Phone Agus Bolaños MD Primary Care Provider [phone] Source Comments [email or web address],non-owned Affiliates and Associated Physician Practices is amultiple site organization consisting of ambulatory clinics and hospital sitesin [place], [place], [place] and [place]. This disclosure is being madepursuant to the Care Everywhere program and may not contain all information available regarding this patient. Last updated 18.[email or web address] Allergies Active Allergy Reactions Criticality Noted Date Comments Penicillins Urticaria Medium 01/13/2015 Occurred years ago Medications * Be aware that medications may not be up to date on this document. Alwaysverify current medications with the patient. methIMAzole (Tapazole) 5 MG tablet Take 1 (one) tablet by mouth Every , , Saturday10/14/19 24 Active losartan (Cozaar) 50 MG tablet Take 1 (one) tablet by mouth once daily 10/24/19 24 Active folic acid (Folvite) 1 MG tabletIndications: Encounter for methotrexate monitoring Take 1 (one) tablet by mouth once daily Reduce the potential risk of methotrexate related side effects 90 tablet 3 04/16/20 24 Active methotrexate 2.5 MG tabletIndications: Relapsing polychondritis Take 5 (five) tablets by mouth every 7 days 60 tablet 08/04/19 25 Active predniSONE (Deltasone) 2.5 MG tabletIndications: Relapsing polychondritis Take 1 (one) tablet by mouth every 2 days 45 tablet 1 08/12/19 25 Active Active Problems Problem Noted Date Diagnosed Date 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 No recent flare reported since October 2022 on current treatment regimen with patient quite reluctant to attempt tapering off prednisone. Uncertain clinical benefit from the continued use of methotrexate but with patient being stable and in agreement for continued medication monitoring including a CBC and CMP Q 12 weeks along with refraining from consuming alcohol and taking a daily folic acid supplement I believe it would be reasonable to maintain her treatment without changes. If she does experience any further breakthrough episodes of acute polychondritis then trial of colchicine could be considered especially since she previously had been tried and did not tolerate azathioprine as a steroid sparing treatment option. Osteoarthritis of both hands 12/05/2023 Current chronic use of systemic steroids 024 Assessment & Plan (12/05/2023 5:07 PM CDT): I have reviewed with Sandi Johnson potential short and long-term risks associated with the use of corticosteroid medications such as prednisone and methylprednisolone including but not limited to undesirable weight gain, insomnia, emotional lability, depression, anxiety, nervousness, increased risk to develop premature cataracts, infections including shingles, hyperlipidemia, steroid induced diabetes mellitus, bone demineralization, worsening of pre-existing osteoporosis and the rare occurrence of osteonecrosis. Encounter for methotrexate monitoring 12/05/2023 Assessment & Plan (12/05/2023 5:06 PM CDT): The patient has been counseled on risks and benefits of methotrexate use including but not limited to the risk of liver toxicity, bone marrow suppression and methotrexate induced lung injury. The patient was advised to discontinue methotrexate and called this clinic immediately if any sudden cough, fevers or dyspnea on exertion develops. CBC with differential, liver function enzymes and renal/kidney function status will be routinely checked every 8-12 weeks to screen the patient for possible developing methotrexate side effects. While receiving treatment with methotrexate the patient should avoid the use of sulfonamide containing antibiotics such as trimethoprim/sulfamethoxazole also known as Bactrim due to significant and potentially severe drug interaction related side effects. Additionally, alcohol should not be consumed while using methotrexate due to an increase risk for the possible future development of liver related side effects including liver injury such as cirrhosis. Encounters Date Type Department Care Team Description 08/11/2024 Refill [facility] - Rheumatology [address] [place] [address], [address] [place] [address] Alfred De La Rosa, DO MEDICATION REFILL 08/05/2024 Telephone [facility] - [address], [address] [place] [address] Alfred De La Rosa, DO Med Question 08/03/[address], [address] [place] [address] Alfred De La Rosa, DO MEDICATION REFILL from Last 3 Months Family History Medical History Relation Name Comments Cancer - Colon Father Thyroid Disease Other Relation Name Status Comments Father Other Social History Tobacco Use Types Packs/Day Years Used Date Smoking Tobacco: Some Days Cigarettes Alcohol Use Standard Drinks/Week Comments Yes 0 (1 standard drink = 0.6 oz pur e alcohol) rare Comments No Sex and Gender Information Value Date Recorded Sex Assigned at Not on file Legal Sex Female 2:46 PM CDT Gender Identity Not on file Sexual Orientation Not on file Last Filed Vital Signs Vital Sign Reading Time Taken Comments Blood Pressure 124/82 12/05/2023 1:53 PM CDT Pulse 78 12/05/2023 1:53 PM CDT Temperature 36.7 C (98 F) 12/05/2023 1:53 PM CDT Respiratory Rate 16 12/05/2023 1:53 PM CDT Oxygen Saturation 99% 12/05/2023 1:53 PM CDT Inhaled Oxygen Concentration - - Weight 62.1 kg (137 lb) 12/05/2023 1:53 PM CDT Height 170.2 cm (5' 7 ) 12/05/2023 1:53 PM CDT Body Mass Index 21.46 12/05/2023 1:53 PM CDT Plan of Treatment Upcoming Encounters Date Type Department Care Team (Late st Contact Info) Description 12/03/2024 10:40 AM CDT Office Visit [facility] - Rheumatology [address], [address] [place] [address] Alfred De La Rosa DO [address] [place] [address] Health Maintenance Due Date Last Done Comments COLOGUARD (AGES 45-75) - COLON CA SCREENING 1955 COLON MONITORING 1955 COLONOSCOPY - COLON CA SCREENING 1953 CT COLONOGRAPHY - COLON CA SCREENING 1955 Colorectal Cancer Screening 1955 FIT - COLON CA SCREENING 1955 FLEX SIG - COLON CA SCREENING 1955 LIPID TESTING 1955 HEPATITIS C SCREENING 10/26/1971 DTAP/TDAP/TD VACCINES (1 - Tdap) 1972 PNEUMOCOCCAL VACCINE 50+ (1 of 2 - PCV) 1972 ZOSTER VACCINE (1 of 2) 10/31/2003 COVID-19 VACCINE (1 - season) 2024 DEPRESSION SCREENING 05/27/2024 MEDICARE AWV CALENDAR YEAR 2024 INFLUENZA VACCINE (Season Ended) 2025 MAMMOGRAM 06/27/2025 06/27/2023, 05/2023, 06/21/2022, Additional history exists Respiratory Syncytial Virus (RSV) Vaccine Pt: or over 60 yrs (1 - 1-dose 75+ series) 2028 BONE DENSITY TESTING Completed 05/22/2024 HEPATITIS B VACCINE Aged Out No longe r eligible based on patient's age to complete this topic HIB VACCINE Aged Out No longer eligi ble based on patient's age to complete this topic HPV VACCINE Aged Out No longer eligi ble based on patient's age to complete this topic MENINGOCOCCAL (Group B) VACCINE SHARED DECISION-MAKING Aged Out No longer eligible based on patient's age to complete this topic MENINGOCOCCAL GROUPS A/C/Y/W VACCINE Aged Out No longer eligible based on patient's age to complete this topic Procedures Procedure Name Priority Date/Time Associated Diagnosis Comments DEXA BONE DENSITY AXIAL SKELETON Routine 05/22/2024 Current chronic use of systemic steroids from Last 3 Months or Most Recently Relevant to Health Maintenance Results * DEXA BONE DENSITY AXIAL SKELETON (05/22/2024) Anatomical Region Laterality Modality Other Alfred De La Rosa DO DEXA ORDERABLES Final Result from Last 3 Months or Most Recently Relevant to Health Maintenance Insurance [employer] MANAGED MEDICARE ADV Care Teams Acid Dumper Relationship Specialty Start Date End Date Agus Bolaños MD [address] [place] [address] PCP - General Family Medicine 12/05/23
--- OUTSIDE RECORDS SUMMARY | 2024-09-17 10:29 | XMS_ITS | Clinical Summary ---
Author Organization [facility] Address [address] [place] [address] Care Team Providers Care Transmission Systems Operator Name Role Phone Agus Bolaños MD Primary Care Provider [phone] Allergies Active Allergy Reactions Criticality Noted Date Comments Penicillins Hives 01/13/2015 Occurred years ago Medications polyethylene glycol (GOLYTELY) 236 g solutionIndicat ions:Screening for colon cancer 4 liters to be taken by mouth as directed for bowel prep. 4000 mL 03/11/2020 Active metoprolol succinate ER 25 MG 24 hr tablet 05/03/2021 Act balaji methIMAzole 5 MG tablet Take 1 tablet (5 mg total) by mouth daily. 02/22/2021 Active methotrexate (TREXALL) 2.5 MG tablet Take 1 tablet (2.5 mg total) by mouth once a week. Active predniSONE (DELTASONE) 2.5 mg tablet Take 1 tablet (2.5 mg total) by mouth every other day. Active folic acid (FOLVITE) 1 MG tablet Take 1 tablet (1 mg total) by mouth daily. Active losartan (COZAAR) 50 MG tablet Take 1 tablet (50 mg total) by mouth daily. Active Active Problems Problem Noted Date Diagnosed Date Screening for colon cancer 03/18/2020 Overview (03/18/2020): Added automatically from request for surgery [id number] Family history of colon cancer 03/18/2020 Overview (03/18/2020): Added automatically from request for surgery [id number] Family History Medical History Relation Comments CHF Father Colon Cancer Father Dementia Mother Colon Cancer Paternal Grandfather Relation Status Comments Father Mother Paternal Grandfather Social History Tobacco Use Types Packs/Day Years Used Date Smoking Tobacco: Some Days Cigarettes 0.3 40 Smokeless Tobacco: Never Tobacco Cessation:Ready to Q uit: Not Asked; Counseling Given: Not Answered Comments:1 pack every 5 days Alcohol Use Standard Drinks/Week Comments Not Currently 0 (1 standard drink = 0.6 oz pur e alcohol) PHQ-2 Answer Date Recorded PHQ-2 Score - If the patient scores above 3, please move on to questions 3-9 0 06/02/2021 Comments No Sex and Gender Information Value Date Recorded Sex Assigned at Not on file Legal Sex Female 8:02 PM CDT Gender Identity Female 06/06/2021 10:04 AM MAINTENANCE JOURNEYMAN Sexual Orientation Bisexual 06/06/2021 10 :04 AM MAINTENANCE JOURNEYMAN Last Filed Vital Signs Vital Sign Reading Time Taken Comments Blood Pressure 143/94 05/25/2024 7:53 AM MAINTENANCE JOURNEYMAN Pulse 74 05/25/2024 7:53 AM MAINTENANCE JOURNEYMAN Temperature 36.3 C (97.4 F) 05/25/2024 6:51 AM MAINTENANCE JOURNEYMAN Respiratory Rate 16 05/25/2024 7:53 AM MAINTENANCE JOURNEYMAN Oxygen Saturation 100% 05/25/2024 7:53 AM MAINTENANCE JOURNEYMAN Inhaled Oxygen Concentration - - Weight 60.8 kg (134 lb) 05/25/2024 6:51 AM MAINTENANCE JOURNEYMAN Height 170.2 cm (5' 7 ) 05/25/2024 6:51 AM MAINTENANCE JOURNEYMAN Body Mass Index 20.99 05/25/2024 6:51 AM MAINTENANCE JOURNEYMAN Plan of Treatment Health Maintenance Due Date Last Done Comments Hepatitis C 10/31/1971 DTaP, Tdap and Td Vaccines (1 - Tdap) 1972 Zoster Vaccines (1 of 2) 10/31/2003 Pneumococcal Vaccine: 50+ Years (2 of 2 - PPSV23) 04/24/2018 02/27/2018 Annual Medicare Wellness Visit 2018 Dexa Scan (General) 2018 COVID-19 Vaccine ( - season) 2024 Mammogram Screening 06/27/2025 06/27/2023, 06/21/2022, 06/14/2021, Additional history exists RSV Immunization or 60+ Years (1 - 1-dose 75+ series) 2028 Colorectal Cancer Screening Colonoscopy (10 Years) 07/06/2030 07/06/2020, Meningococcal B Vaccine Aged Out No l onger eligible based on patient's age to complete this topic Meningococcal Vaccine Aged Out No raul imtiaz eligible based on patient's age to complete this topic RSV Immunizations Under 20 Months Aged Out No longer eligible based on patient's age to complete this topic Medical Devices Implanted Type Area Truckload Checker Device Identifier Shelf Expiration Date Model / Serial / Lot Tecnis 1-Piece Iol With Tecnis Simplicity Delivery System Implanted:Qty: 1 on 05/25/2024 by Jones Aleman MD at [facility] 03/25/2025 / [id number] / Procedures Procedure Name Priority Date/Time Associated Diagnosis Comments COLONOSCOPY Routine MAINTENANCE JOURNEYMAN from Last 3 Months or Most Recently Relevant to Health Maintenance Results * Colonoscopy ( MAINTENANCE JOURNEYMAN) Narrative [employer] TO EPIC CONVERSION - MAINTENANCE JOURNEYMAN Documented hx of procedure Procedure Note Alize Shirley MD - 03/30/2018 Documented hx of procedure Generic Conversion Md SHIRLEY GI PROCEDURE ORDERABLES Final Result [employer] TO EPIC CONVERSION from Last 3 Months or Most Recently Relevant to Health Maintenance Insurance [facility] [place] [id number] Care Teams Transmission Systems Operator Relationship Specialty Start Date End Date Agus Bolaños MD [address] [place] [address] PCP - General FAMILY PRACTICE 03/10/20
--- OUTSIDE RECORDS SUMMARY | 2024-09-17 10:29 | XMS_ITS | Encounter Summary ---
Author Organization [facility] Address [address] [place] [address] Care Team Providers Care Diamond Merchant Name Role Phone Agus Bolaños MD Primary Care Provider [phone] Encounter Details Date Type Department Care Team (Late st Contact Info) Description 04/25/2020 Prep for Procedure [facility] Day Services [address] [place], [place] [phone] Nba Yoon MD [address] [place] [address] Social History Tobacco Use Types Packs/Day Years Used Date Smoking Tobacco: Some Days Smokeless Tobacco: Never Comments:1 pack every 5 days Alcohol Use Standard Drinks/Week Comments Not Currently 0 (1 standard drink = 0.6 oz pur e alcohol) Comments No Sex and Gender Information Value Date Recorded Sex Assigned at Not on file Legal Sex Female 8:02 PM CDT Gender Identity Female 06/06/2021 10:04 AM INTERMEDIATE FRAME TENDER Sexual Orientation Bisexual 06/06/2021 10 :04 AM INTERMEDIATE FRAME TENDER documented as of this encounter Plan of Treatment Not on file documented as of this encounter Results * (ABNORMAL) PRE-SURGICAL/PRE-PROCEDURE CORONAVIRUS (COVID 19) (05/01/2020 9:19 AM INTERMEDIATE FRAME TENDER) CORONAVIRUS SARS COV 2 PCR (RESP) DETECTED(A) NOT DETECTED 05/02/2020 5:46 PM INTERMEDIATE FRAME TENDER [facility] Comment: A Detected result is considered a positive test result for COVID-19. This indicates that RNA from SARS-CoV-2 (formerly 2019-nCoV) was detected, and the patient is infected with the virus and presumed to be contagious. If requested by public health authority, specimen will be sent for additional testing. Please review the Fact Sheets and FDA authorized labeling available for health care providers and patients using the following websites: https://www.[employer].Stereotypes/home/Covid-19/HCP/NAAT/fact-sheet2 https://www.[employer].Stereotypes/home/Covid-19/Patients/NAAT/ fact-sheet2 This test has been authorized by the FDA under an Emergency Use Authorization (EUA) for use by authorized laboratories. Due to the current public health emergency, [facility] is receiving a high volume of samples from a wide variety of swabs and media for COVID-19 testing. In order to serve patients during this public health crisis, samples from appropriate clinical sources are being tested. Negative test results derived from specimens received in non-commercially manufactured viral collection and transport media, or in media and sample collection kits not yet authorized by FDA for COVID-19 testing should be cautiously evaluated and the patient potentially subjected to extra precautions such as additional clinical monitoring, including collection of an additional specimen. Methodology: Nucleic Acid Amplification Test (NAAT) includes RT-PCR or TMA Additional information about COVID-19 can be found at the [facility] website: www.KPA.Stereotypes/Covid19. Test performed at [facility] [place] [address] [place] [address] Director: ARMINDA DIAZ DO,MPH FIRST TEST UNKNOWN 05/01/2020 7:57 AM [facility] EMPLOYED IN HEALTHCARE NO 05/01/2020 7:57 AM [facility] SYMPTOMATIC DEFINED BY CDC NO 05/01/2020 7:57 AM [facility] DATE OF SYMPTOM ONSET UNKNOWN 05/01/2020 9:59 AM [facility] HOSPITALIZATION STATUS NO 05/01/2020 7:57 AM [facility] PATIENT IN ICU NO 05/01/2020 7:57 AM [facility] RESIDENT OF CONGREGATE CARE NO 05/01/2020 7:57 AM INTERMEDIATE FRAME TENDER [facility] UNKNOWN 05/01/2020 9:59 AM INTERMEDIATE FRAME TENDER [facility] PATIENT'S RACE WHITE OR 05/01/2020 7:57 AM INTERMEDIATE FRAME TENDER [facility] ETHNICITY NONHISPANIC 05/01/2020 7:57 AM INTERMEDIATE FRAME TENDER [facility] SOURCE (QST) NASOPHARYNGEAL SWAB 05/01/2020 7:57 AM INTERMEDIATE FRAME TENDER [facility] NASOPHARYNGEAL SWAB / Unknown 05/01/2020 9:19 AM INTERMEDIATE FRAME TENDER us Nba Yoon MD MICROBIOLOGY - GENERAL ORDERABLE S Final Result Performing Organization Address [facility]/State/[facility] Co de Phone Number [facility] [address] [place] [address], [facility] [address] [place] [address], documented in this encounter Visit Diagnoses Diagnosis Preop testing- Primary Preoperative examination, unspecified documented in this encounter Additional Health Concerns Infection Onset Date Last Indicated Resolved Time COVID-19 Rule Out 05/01/2020 05/01/2020 05/02/2020 5:46 PM INTERMEDIATE FRAME TENDER COVID-19 Confirmed 05/01/2020 05/01/2020 1 12:34 AM INTERMEDIATE FRAME TENDER documented as of this encounter Care Teams Diamond Merchant Relationship Specialty Start Date End Date Agus Bolaños MD [address] [place] [address] PCP - General FAMILY PRACTICE 03/10/20 documented as of this encounter
[2024-09-17 10:58] LABS: Free T4 Free Thyroxine 1.23 ng/dL (0.78-2.19)
[2024-09-17 11:12] LABS: Thyroid Stimulating Hormone 0.017 uIU/mL (0.465-4.680); Total Triiodothyronine (T3) 1.14 NG/ML (0.97-1.69)
== END 2024-09-17 09:36 | disposition home or self-care (01) ==
PROVIDERS: PCP Family Medicine; Referring Provider Internal Medicine Rheumatology; Visit Provider Physician Assistant
DX: Z51.81 Encounter for therapeutic drug level monitoring (principal); Z79.631 Long term (current) use of antimetabolite agent; E05.90 Thyrotoxicosis, unspecified without thyrotoxic crisis or storm
CPT/HCPCS: 36415; 84439; 84443; 84480

== ENCOUNTER 2024-09-23 10:15 | Outpatient (CLI) | payer MEDICARE, SELFPAY ==
[2024-09-23 10:41] LABS: Basophils Absolute Auto 0.1 K/mm3 (0.0-0.1); Basophils Percent Auto 0.9 % (0.2-1.2); Eosinophils Percent Auto 0.6 % (0-4.4); Hematocrit 35.6 % (37.0-47.0); Hemoglobin 11.6 g/dL (12.0-15.0); Immature Granulocyte Absolute 0.03 K/mm3 (0.00-0.031); Immature Granulocyte Percent A 0.4 % (0-0.5); Lymphocytes Absolute Auto 1.12 K/mm3 (0.9-3.2); Lymphocytes Percent Auto 16.2 % (18.3-44.2); Mean Corpuscular HGB Conc 32.6 g/dl (32-36); Mean Corpuscular Hemoglobin 31.4 pg (26-34); Mean Corpuscular Volume 96.2 fl (80-100); Mean Platelet Volume 9.2 fl (7.4-10.4); Monocytes Absolute Auto 0.5 K/mm3 (0.1-0.6); Monocytes Percent Auto 6.6 % (2.6-8.5); Neutrophils Absolute Auto 5.2 K/mm3 (1.3-6.7); Neutrophils Percent Auto 75.3 % (45.5-73.1); Platelet Count Result 330 k/mm3 (150-375); Red Cell Distribution Width 14.6 % (11.5-14.5); White Blood Count 6.9 K/mm3 (4.5-10.0)
[2024-09-23 10:46] LABS: Alanine Aminotransferase 19 U/L (6-35); Albumin Level 4.2 g/dL (3.5-5.1); Alkaline Phosphatase 63 U/L (38-126); Anion Gap 6 mmol/L (4-12); Aspartate Amino Transferase 24 U/L (14-36); Bilirubin,Total 0.5 mg/dL (0.2-1.3); Blood Urea Nitrogen 18 mg/dL (7-17); Calcium 8.6 mg/dL (8.4-10.2); Carbon Dioxide 28 mmol/L (22-30); Chloride 104 mmol/L (98-107); Estimated Glomerular Filt Rate 57; Glucose 101 mg/dL (65-110); Potassium 4.3 mmol/L (3.4-5.0); Sodium 138 mmol/L (137-145)
--- OUTSIDE RECORDS SUMMARY | 2024-09-23 11:26 | XMS_ITS | Referral Summary ---
Author Organization [facility] Address [address] [place] [address] Care Team Providers Care Mattress Finisher Name Role Phone Agus Bolaños MD Primary Care Provider Encounters Date Type Department Care Team Description 08/06/2024 9:53 AM CDT - 08/06/2024 11:59 PM CDT Hospital Encounter [facility] Breast Imaging [address] [place] [phone] Screening mammogram, encounter for Discharge Disposition: Discharge to home or self care from Last 3 Months Social History Tobacco Use Types Packs/Day Years Used Date Smoking Tobacco: Never Assessed Comments No Sex and Gender Information Value Date Recorded Sex Assigned at Not on file Legal Sex Female 6:08 PM HOSPITALITY TEAM MEMBER Gender Identity Not on file Sexual Orientation [...] age 38, based on guidelines of the [employer] (ACR Practice Parameter for the Performance of Screening and Diagnostic Mammography) and [employer]. For women [...] nal Result from Last 3 Months Insurance [facility] [place] [address] Care Teams Mattress Finisher Relationship Specialty Start Date End Date Agus Bolaños MD [address] [facility] [address] [place] [address] PCP - General 06/03/19
--- OUTSIDE RECORDS SUMMARY | 2024-09-23 11:26 | XMS_ITS | Encounter Summary ---
Author Organization [facility] Address [address] [place] [address] Care Team Providers Care Call Center Assistant Name Role Phone Agus Bolaños MD Primary Care Provider [phone] Encounter Details Date Type Department Care Team (Late st Contact Info) Description 04/25/2020 Prep for Procedure [facility] One Day Services [address] [place], [place] [phone] Nba Yoon MD [address] [place] [address] Social History Tobacco Use Types Packs/Day Years [...] CDT Gender Identity Female 06/06/2021 10:04 AM [employer] SAL[employer] Sexual Orientation Bisexual 06/06/2021 10 :04 AM SVP DIGITAL SALES documented as of this encounter Plan of Treatment Not on file documented as of this encounter Results * (ABNORMAL) PRE-SURGICAL/PRE-PROCEDURE CORONAVIRUS (COVID 19) (05/01/2020 9:19 AM [employer]) CORONAVIRUS SARS COV 2 PCR (RESP) DETECTED(A) NOT DETECTED 05/02/2020 5:46 PM SVP DIGITAL SALES [facility] Comment: A Detected result is considered a [...] providers and patients using the following websites: https://www.t-Art.FilterSure/home/Covid-19/HCP/NAAT/fact-sheet2 https://www.t-Art.FilterSure/home/Covid-19/Patients/NAAT/ fact-sheet2 This test has been authorized by the FDA under an Emergency Use Authorization (EUA) for use by authorized laboratories. Due to the current public health emergency, [employer] is receiving a high volume of samples [...] about COVID-19 can be found at the [employer] website: www.[employer].FilterSure/Covid19. Test performed at [facility] [address] [place] [address] Director: ARMINDA DIAZ DO,MPH FIRST TEST UNKNOWN 05/01/2020 7:57 AM [facility] EMPLOYED IN HEALTHCARE NO 05/01/2020 7:57 AM [facility] SYMPTOMATIC DEFINED BY CDC NO 05/01/2020 7:57 AM [facility] DATE OF SYMPTOM ONSET UNKNOWN 05/01/2020 9:59 AM [facility] HOSPITALIZATION STATUS NO 05/01/2020 7:57 AM [facility] PATIENT IN ICU NO 05/01/2020 7:57 AM [facility] RESIDENT OF CONGREGATE CARE NO 05/01/2020 7:57 AM [employer] SALES [facility] UNKNOWN 05/01/2020 9:59 AM [employer] SALES [facility] PATIENT'S RACE WHITE OR 05/01/2020 7:57 AM [employer] SALES [facility] ETHNICITY NONHISPANIC 05/01/2020 7:57 AM [employer]ES [facility] SOURCE (QST) NASOPHARYNGEAL SWAB 05/01/2020 7:57 AM [employer] SALES [facility] NASOPHARYNGEAL SWAB / Unknown 05/01/2020 9:19 AM [employer] us Nba Yoon MD MICROBIOLOGY - GENERAL ORDERABLE S Final Result Performing Organization Address [facility]/State/[facility] Co de Phone Number [facility] [address] [place] [address], [facility] [address] [place] [address], documented in this encounter Visit Diagnoses Diagnosis Preop testing- Primary Preoperative examination, unspecified documented in this encounter Additional Health Concerns Infection Onset Date Last Indicated Resolved Time COVID-19 Rule Out 05/01/2020 05/01/2020 05/02/2020 5:46 PM [employer] COVID-19 Confirmed 05/01/2020 05/01/2020 1 12:34 AM SVP DIGITAL SALES documented as of this encounter Care Teams Call Center Assistant Relationship Specialty Start Date End Date Agus Bolaños MD [address] [place] [address] PCP - General FAMILY PRACTICE 03/10/20 documented as of this encounter
--- OUTSIDE RECORDS SUMMARY | 2024-09-23 11:26 | XMS_ITS | Clinical Summary ---
Author Organization [facility] Address [address] [place] [address] Care Team Providers Care Trash Collector Name Role Phone Agus Bolaños MD Primary Care Provider Allergies Active Allergy Reactions Criticality Noted Date [...] (03/18/2020): Added automatically from request for surgery [id number] Family history of colon cancer 03/18/2020 Overview (03/18/2020): Added automatically from request for surgery [id number] Family History Medical History Relation Comments CHF [...] CDT Gender Identity Female 06/06/2021 10:04 AM HUNTER GUIDE Sexual Orientation Bisexual 06/06/2021 10 :04 AM HUNTER GUIDE Last Filed Vital Signs Vital Sign Reading Time Taken Comments Blood Pressure 143/94 05/25/2024 7:53 AM HUNTER GUIDE Pulse 74 05/25/2024 7:53 AM HUNTER GUIDE Temperature 36.3 C (97.4 F) 05/25/2024 6:51 AM HUNTER GUIDE Respiratory Rate 16 05/25/2024 7:53 AM HUNTER GUIDE Oxygen Saturation 100% 05/25/2024 7:53 AM HUNTER GUIDE Inhaled Oxygen Concentration - - Weight 60.8 kg (134 lb) 05/25/2024 6:51 AM HUNTER GUIDE Height 170.2 cm (5' 7 ) 05/25/2024 6:51 AM HUNTER GUIDE Body Mass Index 20.99 05/25/2024 6:51 AM HUNTER GUIDE Plan of Treatment Health Maintenance Due Date [...] this topic Medical Devices Implanted Type Area Hat Body Sorter Device Identifier Shelf Expiration Date Model / Serial / Lot Tecnis 1-Piece Iol With Tecnis Simplicity Delivery System Implanted:Qty: 1 on 05/25/2024 by Jones Aleman MD at [facility] 03/25/2025 / [id number] / Procedures Procedure Name Priority Date/Time Associated Diagnosis Comments COLONOSCOPY Routine HUNTER GUIDE from Last 3 Months or Most Recently Relevant to Health Maintenance Results * Colonoscopy ( HUNTER GUIDE) Narrative [facility] TO EPIC CONVERSION - HUNTER GUIDE Documented hx of procedure Procedure Note Alize Shirley MD - 03/30/2018 Documented hx of procedure Generic Conversion Md SH[facility]LEY GI PROCEDURE ORDERABLES Final Result [facility] TO EPIC CONVERSION from Last 3 Months or Most Recently Relevant to Health Maintenance Insurance [place] [address] Care Teams Trash Collector Relationship Specialty Start Date End Date Agus Bolaños MD [address] [place] [address] PCP - General FAMILY PRACTICE 03/10/20
--- OUTSIDE RECORDS SUMMARY | 2024-09-23 11:26 | XMS_ITS | Clinical Summary ---
Author Organization [facility] Address [address] [facility] [place] [address] Care Team Providers Care Cook At School Name Role Phone Agus Bolaños MD Primary Care Provider Source Comments [facility],non-owned Affiliates and Associated Physician Practices is amultiple site organization consisting of ambulatory clinics and hospital sitesin [place], [place], [place] and [place]. This disclosure is being madepursuant to the Care Everywhere program and may not contain all information available regarding this patient. Last updated 18.[facility] Allergies Active Allergy Reactions Criticality Noted Date [...] Type Department Care Team Description 08/11/2024 Refill [facility] - Rheumatology [address] [place] [address], [address] [place] [address] Alfred De La Rosa, DO MEDICATION REFILL 08/05/2024 Telephone [facility] - [address], [address] [place] [address] Alfred De La Rosa, DO Med Question 08/03/[address], [address] [place] [address] Alfred De La Rosa, DO [...] [facility] - Rheumatology [address], [address] [place] [address] Alfred De La Rosa DO [address] [place] [address] Health Maintenance Due Date Last [...] Insurance [employer] MANAGED MEDICARE ADV Care Teams Cook At School Relationship Specialty Start Date End Date Agus Bolaños MD [address] [place] [address] PCP - General Family Medicine 12/05/23
--- OUTSIDE RECORDS SUMMARY | 2024-09-23 11:26 | XMS_ITS | Clinical Summary ---
Author Organization [facility] Address [address] [place] [address] Care Team Providers Care Orthodontic Treatment Coordinator Name Role Phone Agus Bolaños MD Primary Care Provider Encounters Date Type Department Care Team Description 08/06/2024 9:53 AM CDT - 08/06/2024 11:59 PM CDT Hospital Encounter [facility] Breast Imaging [address] [place] [address] Screening mammogram, encounter for Discharge Disposition: Discharge [...] on file Legal Sex Female 6:08 PM DIRECTOR PERSONAL Gender Identity Not on file Sexual Orientation [...] age 38, based on guidelines of the [place] [employer] (ACR Practice Parameter for the Performance of Screening and Diagnostic Mammography) and [employer]. For women [...] nal Result from Last 3 Months Insurance [facility] [place] [address] Care Teams Orthodontic Treatment Coordinator Relationship Specialty Start Date End Date Agus Bolaños MD [address] [facility] [address] [place] [address] PCP - General 06/03/19
== END 2024-09-23 10:16 | disposition home or self-care (01) ==
PROVIDERS: PCP Family Medicine; Visit Provider Internal Medicine Rheumatology
DX: Z51.81 Encounter for therapeutic drug level monitoring (principal); Z79.631 Long term (current) use of antimetabolite agent
CPT/HCPCS: 36415; 80053; 85025

== ENCOUNTER 2024-12-01 09:14 | Outpatient (CLI) | payer MEDICARE, SELFPAY ==
--- OUTSIDE RECORDS SUMMARY | 2024-12-01 09:19 | XMS_ITS | Referral Summary ---
Author Organization [facility] Address [facility] [place] [address] Care Team Providers Care Tower Hoist Operator Name Role Phone Agus Bolaños MD Primary Care Provider Social History Tobacco Use Types Packs/Day Years Used Date Smoking Tobacco: Never Assessed Comments No Sex and Gender Information Value Date Recorded Sex Assigned at Not on file Legal Sex Female 6:08 PM FREIGHT SORTER Gender Identity Not on file Sexual Orientation Not on file Plan of Treatment Not on file Procedures Procedure Name Priority Date/Time Associated Diagnosis Comments SCREENING MAMMOGRAM BILATERAL W KAMALJIT Schedule Routine, Read Routine (OP Routine) 08/06/2024 10:09 AM CDT Screening mammogram, encounter for from Last 3 Months or Most Recently Relevant to Health Maintenance Results * Screening Mammogram Bilateral W Kamaljit [...] age 38, based on guidelines of the [place] [employer] (ACR Practice Parameter for the Performance of Screening and Diagnostic Mammography) and [place] [employer] Gynec[employer]. For women [...] Fi nal Result from Last 3 Months or Most Recently Relevant to Health Maintenance Insurance [facility] [place] [address] Care Teams Tower Hoist Operator Relationship Specialty Start Date End Date Agus Bolaños MD [address] [address] [facility] - General 06/03/19
--- OUTSIDE RECORDS SUMMARY | 2024-12-01 09:19 | XMS_ITS | Clinical Summary ---
Author Organization [facility] Address [address] [place] [address] Care Team Providers Care Corporate Travel Coordinator Name Role Phone Agus Bolaños MD Primary Care Provider Family History Medical History Relation Name Comments Breast cancer Mother's Sister 1 Breast cancer Mother's Sister 2 Relation Name Status Comments Mother's Sister 1 Mother's Sister 2 Social History Tobacco Use Types Packs/Day Years Used Date Smoking Tobacco: Never Assessed Comments No Sex and Gender Information Value Date Recorded Sex Assigned at Not on file Legal Sex Female 6:08 PM HUMAN [employer] HR GENERALIST Gender Identity Not on file Sexual Orientation [...] 10/31/2003 Well Visit 65+ 2018 Covid-19 Vaccine (2023-2 5 season) 2024 09/01/2020, 08/04/2020 Influenza Vaccine (Season Ended) 2025 03/15/2021, 03/10/2020, 02/11/2019, Additional history exists Breast Cancer [...] age 40, based on guidelines of the [place] [employer] (ACR Practice Parameter for the Performance of Screening and Diagnostic Mammography) and [place] [employer]. For women [...] Most Recently Relevant to Health Maintenance Insurance [facility] MDCR HMO REF Care Teams Corporate Travel Coordinator Relationship Specialty Start Date End Date Agus Bolaños MD [address] [facility] [address] [place] [address] PCP - General 06/03/19
--- OUTSIDE RECORDS SUMMARY | 2024-12-01 09:19 | XMS_ITS | Clinical Summary ---
Author Organization [facility] Address [address] [place] [address] Care Team Providers Care Director Of It Operations Name Role Phone Agus Bolaños MD Primary Care Provider [phone] Source Comments [facility],non-owned Affiliates and Associated Physician Practices is amultiple site organization consisting of ambulatory clinics and hospital sitesin [place], [place], [place] and [place]. This disclosure is being madepursuant to the Care Everywhere program and may not contain all information available regarding this patient. Last updated 18.[facility] Allergies Active Allergy Reactions Criticality Noted Date [...] Encounters Date Type Department Care Team Description 09/23/2024 Results Follow-Up [facility] - Rheumatology [address] [place] [address], [address] [place] [address] Alfred De La Rosa DO from Last 3 Months Family History Medical [...] 1:53 PM CDT Height 170.2 cm (5' 7) 12/05/2023 1:53 PM CDT Body Mass Index 21.46 12/05/2023 1:53 PM CDT Plan of Treatment Upcoming Encounters Date Type Department Care Team (Late st Contact Info) Description 12/03/2024 10:40 AM CDT Office Visit [facility] - Rheumatology [address] [place] [address], [address] [place] [address] [place] [address] [place] [address] [address] [place] [address] Health Maintenance Due Date Last [...] of 2) 10/31/2003 COVID-19 VACCINE (1 - 2023-25 season) 2024 DEPRESSION SCREENING 05/27/2024 MEDICARE AWV CALENDAR YEAR 2024 INFLUENZA VACCINE (#1) 2025 MAMMOGRAM 06/27/2025 06/27/2023, 05/2023, 06/21/2022, Additional [...] Procedure Name Priority Date/Time Associated Diagnosis Comments CBC W DIFF (EXTERNAL RESULT ENTRY) Routine 09/23/2024 1:01 PM CDT COMPREHENSIVE METABOLIC PANEL Routine 09/23/2024 1:01 PM CDT DEXA BONE DENSITY AXIAL SKELETON Routine 05/22/2024 Current chronic use of systemic steroids from Last 3 Months or Most Recently Relevant to Health Maintenance Results * CBC W DIFF (EXTERNAL RESULT ENTRY) (09/23/2024 1:01 PM CDT) Blood BLOOD SPECIMEN / Unknown us Scanned Document LAB - HEMATOLOGY ORDERABLES Fin al Result * COMPREHENSIVE METABOLIC PANEL (09/23/2024 1:01 PM CDT) Blood BLOOD SPECIMEN / Unknown us Scanned Document LAB - CHEMISTRY ORDERABLES Otilia l Result * DEXA BONE DENSITY AXIAL SKELETON (05/22/2024) Anatomical Region Laterality Modality Other us Alfred De La Rosa DO DEXA ORDERABLES Final Result from Last 3 Months or Most Recently Relevant to Health Maintenance Insurance Care Teams Director Of It Operations Relationship Specialty Start Date End Date Agus Bolaños MD [address] [place] [address] PCP - General Family Medicine 12/05/23
[2024-12-01 09:37] LABS: Hematocrit 32.6 % (37.0-47.0); Hemoglobin 10.4 g/dL (12.0-15.0); Immature Granulocyte Percent A 0.8 % (0-0.5); Lymphocytes Absolute Auto 1.34 K/mm3 (0.9-3.2); Mean Corpuscular HGB Conc 31.9 g/dl (32-36); Mean Corpuscular Hemoglobin 30.6 pg (26-34); Mean Corpuscular Volume 95.9 fl (80-100); Nucleated Red Blood Cells Absolute Auto 0.000 K/mm3 (0.0-0.012); Nucleated Red Blood Cells Perc 0.0 % (0.0-0.2); Platelet Count Result 438 k/mm3 (150-375); Red Blood Count 3.40 M/mm3 (4.2-5.4); White Blood Count 8.4 K/mm3 (4.5-10.0)
[2024-12-01 09:55] LABS: Alanine Aminotransferase 16 U/L (6-35); Albumin Level 3.9 g/dL (3.5-5.1); Alkaline Phosphatase 65 U/L (38-126); Anion Gap 9 mmol/L (4-12); Aspartate Amino Transferase 24 U/L (14-36); Bilirubin,Total 0.5 mg/dL (0.2-1.3); Blood Urea Nitrogen 16 mg/dL (7-17); Calcium 9.0 mg/dL (8.4-10.2); Carbon Dioxide 25 mmol/L (22-30); Chloride 106 mmol/L (98-107); Estimated Glomerular Filt Rate 52; Glucose 93 mg/dL (65-110); Potassium 4.1 mmol/L (3.4-5.0); Sodium 140 mmol/L (137-145); Total Protein 7.0 g/dL (6.3-8.2)
[2024-12-01 10:25] LABS: Thyroid Stimulating Hormone 0.810 uIU/mL (0.465-4.680); Total Triiodothyronine (T3) 1.17 NG/ML (0.82-1.58)
[2024-12-01 10:35] LABS: Free T4 Free Thyroxine 1.52 ng/dL (0.78-2.19)
== END 2024-12-01 09:15 | disposition home or self-care (01) ==
PROVIDERS: PCP Family Medicine; Referring Provider Internal Medicine Rheumatology
DX: E05.90 Thyrotoxicosis, unspecified without thyrotoxic crisis or storm (principal); Z51.81 Encounter for therapeutic drug level monitoring; Z79.631 Long term (current) use of antimetabolite agent
CPT/HCPCS: 36415; 80053; 84439; 84443; 84480; 85025

== ENCOUNTER 2024-12-10 09:29 | Outpatient (CLI) | payer MEDICARE, SELFPAY ==
--- OUTSIDE RECORDS SUMMARY | 2024-12-10 09:36 | XMS_ITS | Referral Summary ---
Author Organization [facility] Address [facility] [place] [address] Care Team Providers Care Communications Department Chairperson Name Role Phone Agus Bolaños MD Primary Care Provider Social History Tobacco Use Types Packs/Day Years Used Date Smoking Tobacco: Never Assessed Comments No Sex and Gender Information Value Date Recorded Sex Assigned at Not on file Legal Sex Female 6:08 PM DATA ASSISTANT Gender Identity Not on file Sexual Orientation [...] age 38, based on guidelines of the [place] [employer] (ACR Practice Parameter for the Performance of Screening and Diagnostic Mammography) and [place] [employer]. For women [...] Most Recently Relevant to Health Maintenance Insurance [facility] MDCR HMO REF [facility] MEDICARE Address: [facility] [address] [place] [address] Care Teams Communications Department Chairperson Relationship Specialty Start Date End Date Agus Bolaños MD [address] [address] [facility] - General 06/03/19
--- OUTSIDE RECORDS SUMMARY | 2024-12-10 09:36 | XMS_ITS | Clinical Summary ---
Author Organization [facility] Address [address] [place] [address] Care Team Providers Care Conduit Helper Name Role Phone Agus Bolaños MD Primary Care Provider [phone] Allergies Active Allergy Reactions Criticality Noted Date [...] (03/18/2020): Added automatically from request for surgery [id number] Family history of colon cancer 03/18/2020 Overview (03/18/2020): Added automatically from request for surgery [id number] Family History Medical History Relation Comments CHF [...] CDT Gender Identity Female 06/06/2021 10:04 AM CANDY WRAPPING MACHINE OPERATOR Sexual Orientation Bisexual 06/06/2021 10 :04 AM CANDY WRAPPING MACHINE OPERATOR Last Filed Vital Signs Vital Sign Reading Time Taken Comments Blood Pressure 143/94 05/25/2024 7:53 AM CANDY WRAPPING MACHINE OPERATOR Pulse 74 05/25/2024 7:53 AM CANDY WRAPPING MACHINE OPERATOR Temperature 36.3 C (97.4 F) 05/25/2024 6:51 AM CANDY WRAPPING MACHINE OPERATOR Respiratory Rate 16 05/25/2024 7:53 AM CANDY WRAPPING MACHINE OPERATOR Oxygen Saturation 100% 05/25/2024 7:53 AM CANDY WRAPPING MACHINE OPERATOR Inhaled Oxygen Concentration - - Weight 60.8 kg (134 lb) 05/25/2024 6:51 AM CANDY WRAPPING MACHINE OPERATOR Height 170.2 cm (5' 7) 05/25/2024 6:51 AM CANDY WRAPPING MACHINE OPERATOR Body Mass Index 20.99 05/25/2024 6:51 AM CANDY WRAPPING MACHINE OPERATOR Plan of Treatment Health Maintenance Due Date [...] this topic Medical Devices Implanted Type Area [employer] Rep Device Identifier Shelf Expiration Date Model / Serial / Lot Tecnis 1-Piece Iol With Tecnis Simplicity Delivery System Implanted:Qty: 1 on 05/25/2024 by Jones Aleman MD at [facility] 03/25/2025 / [id number] / Procedures Procedure Name Priority Date/Time Associated Diagnosis Comments COLONOSCOPY Routine CANDY WRAPPING MACHINE OPERATOR from Last 3 Months or Most Recently Relevant to Health Maintenance Results * Colonoscopy ( CANDY WRAPPING MACHINE OPERATOR) Narrative [facility] TO EPIC CONVERSION - CANDY WRAPPING MACHINE OPERATOR Documented hx of procedure Procedure Note Alize Shirley MD - 03/30/2018 Documented hx of procedure Generic Conversion Md SHIRLEY GI PROCEDURE ORDERABLES Final Result [facility] TO EPIC CONVERSION from Last 3 Months or Most Recently Relevant to Health Maintenance Insurance [facility] Care Teams Conduit Helper Relationship Specialty Start Date End Date Agus Bolaños MD [address] [place] [address] PCP - General FAMILY PRACTICE 03/10/20
--- OUTSIDE RECORDS SUMMARY | 2024-12-10 09:36 | XMS_ITS | Clinical Summary ---
Author Organization [facility] Address [address] [place] [address] Care Team Providers Care Security Researcher Name Role Phone Agus Bolaños MD Primary [...] on file Legal Sex Female 6:08 PM PRIVATE DUTY RN Gender Identity Not on file Sexual Orientation [...] age 38, based on guidelines of the [employer] (ACR Practice Parameter for the Performance of Screening and Diagnostic Mammography) and [employer]. For women [...] Most Recently Relevant to Health Maintenance Insurance [facility] MDCR HMO REF [facility] MEDICARE Address: [facility] [address] [place] [address] Care Teams Security Researcher Relationship Specialty Start Date End Date Agus Bolaños MD [address] [facility] [address] [place] [address] PCP - General 06/03/19
--- OUTSIDE RECORDS SUMMARY | 2024-12-10 09:36 | XMS_ITS | Clinical Summary ---
Author Organization [facility] Address [address] [facility] [place] [address] Care Team Providers Care Vat Cleaner Name Role Phone Agus Bolaños MD Primary Care Provider [phone] Source Comments [facility],non-owned Affiliates and Associated Physician Practices is amultiple site organization consisting of ambulatory clinics and hospital sitesin [place], [place], [place] and [place]. This disclosure is being madepursuant to the Care Everywhere program and may not contain all information available regarding this patient. Last updated 18.[facility] Allergies Active Allergy Reactions Criticality Noted Date Comments Penicillins Urticaria Medium 01/13/2015 Occurred years ago Medications * Be aware that medications may not be up to date on this document. Alwaysverify current medications with the patient. methIMAzole (Tapazole) 5 MG tablet Take 1 (one) tablet by mouth Every , Saturday10/14/19 24 Active losartan (Cozaar) 50 MG tablet Take 1 (one) tablet by mouth once daily 10/24/19 24 Active aspirin (Aspirin) 81 MG chew tablet Take 1 (one) tablet by mouth once daily (chew and swallow) Active vitamin D3 (Cholecalciferol) 25 MCG (1000 UNITS) tablet Take 1 (one) tablet by mouth once daily Active calcium carbonate (Caltrate) 600 MG tablet Take 2 (two) tablets by mouth daily with food Active predniSONE (Deltasone) 2.5 MG tabletIndications :relapsing polychondritis Take 1 (one) tablet by mouth every 2 days Reasons: relapsing polychondritis 45 tablet 1 12/04/19 25 Active methotrexate 2.5 MG tabletIndications :Relapsing polychondritis Take 3 (three) tablets by mouth every 7 days (once a week) Reasons: Relapsing polychondritis 36 tablet 12/04/19 25 Active folic acid (Folvite) 1 MG tabletIndications :Encounter for methotrexate monitoring Take 1 (one) tablet by mouth once daily Reduce the potential risk of methotrexate related side effects 90 tablet 3 12/04/19 25 Active folic acid (Folvite) 1 MG tabletIndications :Encounter for methotrexate monitoring Take 1 (one) tablet by mouth once daily Reduce the potential risk of methotrexate related side effects 90 tablet 3 04/16/20 24 025 Disconti nued(Reo rder) methotrexate 2.5 MG tabletIndications :Relapsing polychondritis Take 5 (five) tablets by mouth every 7 days 60 tablet 08/04/19 25 025 Disconti nued(Reo rder) predniSONE (Deltasone) 2.5 MG tabletIndications :Relapsing polychondritis Take 1 (one) tablet by mouth every 2 days 45 tablet 1 08/12/19 25 025 Disconti nued(Reo rder) Active Problems Problem Noted Date Diagnosed Date Normochromic normocytic anemia 12/03/2024 Assessment & Plan (12/03/2024 11:19 AM CDT): Appearance of anemia does not seem to be associated with her use of methotrexate. She is scheduled to have a repeated CBC within the next 1-2 weeks and recommend iron panel and serum ferritin for consideration of iron-deficiency. 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 Q 7 days and low-dose prednisone 2.5 mg every other day. Seems to be tolerating her medication well although on recent outside laboratory testing performed within the past few days did have identification of a developing normochromic normocytic anemia with a slightly reduced hemoglobin and hematocrit and also had slightly elevated platelet count suggesting possibility of a early developing iron-deficiency anemia otherwise with normal white blood cell count and liver enzymes on methotrexate. She is compliant with daily folic acid supplementation. Assessment & Plan (12/05/2023 5:06 PM CDT): [...] 12/05/2023 Current chronic use of systemic steroids Assessment & Plan (12/03/2024 11:20 AM CDT): 04/2024 DEXA identified some early osteopenia primarily involving the femoral neck to a greater extent than the lumbar spine (corticosteroid preferentially tend to cause decreased bone mineralization within the spine as compared to the hip region). Reassured that she does not need to begin any active treatment for her bone health at this point but would definitely follow-up with a 2 year follow-up DEXA in April of 2026. At this point continue routine calcium and vitamin-D supplementation. Assessment & Plan (12/05/2023 5:07 PM CDT): [...] for methotrexate monitoring 12/05/2023 Assessment & Plan (12/03/2024 11:18 AM CDT): No findings on recent outside available lab testing results to review to suggest developing side effects from the use of methotrexate. Continue current treatment plan and recommend routine repeated monitoring laboratory testing every 12 weeks for continued safe use of this medication. Encouraged to continue daily folic acid supplementation at a minimum of 1 mg daily to reduce potential for possible methotrexate related side effects. Assessment & Plan (12/05/2023 5:06 PM CDT): [...] Encounters Date Type Department Care Team Description 12/03/2024 10:40 AM CDT Office Visit [facility] - Rheumatology [address] [place] [address], [address] [address] Alfred De La Rosa DO Relapsing polychondritis (Primary Dx); Encounter for methotrexate monitoring; Normochromic normocytic anemia; Current chronic use of systemic steroids 09/23/2024 Results Follow-Up [facility] - Rheumatology [address] [place] [address], [facility] [address] [place] [address] Alfred De La Rosa DO from Last 3 Months Family History Medical History Relation Name Comments Cancer - Colon Father Thyroid Disease Other Relation Name Status Comments Father Other Social History Tobacco Use Types Packs/Day Years Used Date Smoking Tobacco: Some Days Cigarettes Alcohol Use Standard Drinks/Week Comments Yes 0 (1 standard drink = 0.6 oz pur e alcohol) rare PHQ-2 Answer Date Recorded Patient Health Questionnaire-2 Score 0 12/03/2024 Comments No Sex and Gender Information Value Date Recorded Sex Assigned at Not on file Legal Sex Female 2:46 PM CDT Gender Identity Not on file Sexual Orientation Not on file Last Filed Vital Signs Vital Sign Reading Time Taken Comments Blood Pressure 100/60 12/03/2024 10:21 AM CDT Pulse 105 12/03/2024 10:21 AM CDT Temperature 36.1 C (97 F) 12/03/2024 10:21 AM CDT Respiratory Rate 16 12/03/2024 10:21 AM CDT Oxygen Saturation 96% 12/03/2024 10:21 AM CDT Inhaled Oxygen Concentration - - Weight 61.7 kg (136 lb) 12/03/2024 10:21 AM CDT Height 170.2 cm (5' 7) 12/05/2023 1:53 PM CDT Body Mass Index 21.3 12/05/2023 1:53 PM CDT Plan of Treatment Upcoming Encounters Date Type Department Care Team (Late st Contact Info) Description 12/02/2025 11:00 AM CDT Office Visit [facility] - Rheumatology [address] [facility], [address] [place] [address] Alfred De La Rosa, [address] [facility] [address] [place] [address] Health Maintenance Due Date Last [...] 10/31/2003 COVID-19 VACCINE (1 - season) 2024 MEDICARE AWV CALENDAR YEAR 2024 INFLUENZA VACCINE (#1) 2025 MAMMOGRAM 08/06/2026 08/06/2024, 07/25, 06/27/2023, Additional history exists Respiratory Syncytial Virus (RSV) Vaccine Pt: or over 60 yrs (1 - 1-dose 75+ series) 2028 BONE DENSITY TESTING Completed 05/22/2024 DEPRESSION SCREENING Completed 12/03/2024 HEPATITIS B VACCINE Aged Out No longe [...] Procedure Name Priority Date/Time Associated Diagnosis Comments LAB Routine 12/01/2024 11:43 AM CDT LAB Routine 12/01/2024 11:41 AM CDT CBC W DIFF (EXTERNAL RESULT ENTRY) Routine 09/23/2024 1:01 PM CDT COMPREHENSIVE METABOLIC PANEL Routine 09/23/2024 1:01 PM CDT DEXA BONE DENSITY AXIAL SKELETON Routine 05/22/2024 Current chronic use of systemic steroids from Last 3 Months or Most Recently Relevant to Health Maintenance Results * LAB (12/01/2024 11:43 AM CDT) Only the most recent of2 resultswithin the time period is included. Alfred De La Rosa DO SCANNING ONLY Final Result * CBC W DIFF (EXTERNAL RESULT ENTRY) [...] Relevant to Health Maintenance Insurance Care Teams Vat Cleaner Relationship Specialty Start Date End Date Agus Bolaños MD [address] [place] [address] PCP - General Family Medicine 12/05/23
--- OUTSIDE RECORDS SUMMARY | 2024-12-10 09:36 | XMS_ITS | Encounter Summary ---
Author Organization [facility] Address [address] [place] [address] Care Team Providers Care Pharmacist Helper Name Role Phone Agus Bolaños MD Primary Care Provider Encounter Details Date Type Department Care Team (Late st Contact Info) Description 04/25/2020 Prep for Procedure [facility] [address] [place], [place] [id number] Nba Yoon MD [address] [place] [id number] Social History Tobacco Use Types Packs/Day Years [...] CDT Gender Identity Female 06/06/2021 10:04 AM BIOLOGIST AIDE Sexual Orientation Bisexual 06/06/2021 10 :04 AM BIOLOGIST AIDE documented as of this encounter Plan of Treatment Not on file documented as of this encounter Results * (ABNORMAL) PRE-SURGICAL/PRE-PROCEDURE CORONAVIRUS (COVID 19) (05/01/2020 9:19 AM BIOLOGIST AIDE) CORONAVIRUS SARS COV 2 PCR (RESP) DETECTED(A) NOT DETECTED 05/02/2020 5:46 PM BIOLOGIST AIDE [facility] Comment: A Detected result is considered a [...] providers and patients using the following websites: https://www.bookletmobile.Myows/home/Covid-19/HCP/NAAT/fact-sheet2 https://www.bookletmobile.Myows/home/Covid-19/Patients/NAAT/ fact-sheet2 This test has been authorized by the FDA under an Emergency Use Authorization (EUA) for use by authorized laboratories. Due to the current public health emergency, about.me is receiving a high volume of samples [...] about COVID-19 can be found at the about.me website: www.Fonality.Myows/Covid19. Test performed at [facility] [address] [place] [address] Director: ARMINDA DIAZ DO,MPH FIRST TEST UNKNOWN 05/01/2020 7:57 AM [facility] EMPLOYED IN HEALTHCARE NO 05/01/2020 7:57 AM [facility] SYMPTOMATIC DEFINED BY CDC NO 05/01/2020 7:57 AM [facility] DATE OF SYMPTOM ONSET UNKNOWN 05/01/2020 9:59 AM [facility] HOSPITALIZATION STATUS NO 05/01/2020 7:57 AM [facility] PATIENT IN ICU NO 05/01/2020 7:57 AM [facility] RESIDENT OF CONGREGATE CARE NO 05/01/2020 7:57 AM BIOLOGIST AIDE [facility] UNKNOWN 05/01/2020 9:59 AM BIOLOGIST AIDE [facility] PATIENT'S RACE WHITE OR 05/01/2020 7:57 AM BIOLOGIST AIDE [facility] ETHNICITY NONHISPANIC 05/01/2020 7:57 AM BIOLOGIST AIDE [facility] SOURCE (QST) NASOPHARYNGEAL SWAB 05/01/2020 7:57 AM BIOLOGIST AIDE [facility] NASOPHARYNGEAL SWAB / Unknown 05/01/2020 9:19 AM BIOLOGIST AIDE us Nba Yoon MD MICROBIOLOGY - GENERAL ORDERABLE S Final Result Performing Organization Address [facility]/State/[facility] Co de Phone Number [facility] [address] [place] [address], [facility] [address] [place] [address], documented in this encounter Visit Diagnoses Diagnosis Preop testing- Primary Preoperative examination, unspecified documented in this encounter Additional Health Concerns Infection Onset Date Last Indicated Resolved Time COVID-19 Rule Out 05/01/2020 05/01/2020 05/02/2020 5:46 PM BIOLOGIST AIDE COVID-19 Confirmed 05/01/2020 05/01/2020 1 12:34 AM BIOLOGIST AIDE documented as of this encounter Care Teams Pharmacist Helper Relationship Specialty Start Date End Date Agus Bolaños MD [address] [place] [address] PCP - General FAMILY PRACTICE 03/10/20 documented as of this encounter
--- NOTE | 2024-12-10 09:43 | ECHO_ITS ---
Patient Info Name: Sandi Johnosn Age: 69 years : 1955 Gender: Female Ht: 67 in Wt: 138 lbs BSA: 1.72 m2 HR: 91 bpm BP: 112 / 73 mmHg Technical Quality: Good Exam Date: 12/10/2024 9:54 AM Patient Status: O Admit Date: 12/10/2024 Exam Type: CA echo doppler color flow Complete two-dimensional, color flow and Doppler transthoracic echocardiogram is performed. Circuit Designer: Emerald Salas Attending Provider: Luis Beavers Summary 1. Complete two-dimensional, color flow and Doppler transthoracic echocardiogram is performed. 2. There is normal biventricular size and systolic function. 3. The aortic valve is bicuspid with fusion of the non coronary and left coronary cusps. There is moderate aortic stenosis. There is no aortic regurgitation. Left Ventricle The left ventricle is normal in size and systolic function. The left ventricular ejection fraction is visually estimated to be 60-65%. Right Ventricle The right ventricle is normal in size and systolic function. Left Atria The left atrium is normal size. Right Atria The right atrium is normal size. Atrial Septum The atrial septum is grossly intact. Aortic Valve The aortic valve is bicuspid with fusion of the non coronary and left coronary cusps. There is moderate aortic stenosis. There is no aortic regurgitation. Pulmonic Valve The pulmonic valve is not well visualized. There is no color Doppler evidence of pulmonic valve regurgitation. Mitral Valve The mitral valve is normal. There is mild mitral regurgitation. Tricuspid Valve The tricuspid valve is normal. There is moderate tricuspid regurgitation. Pericardium/Pleural Pericardium is normal in appearance with no evidence for significant pericardial effusion. Inferior Vena Cava Normal inferior vena cava with >50% collapse upon inspiration consistent with normal right atrial pressure, 3 mmHg. Aorta The aortic root at the level of the sinus of Valsalva measures 2.7 cm in diameter. Left Ventricular Outflow Tract Name Value Normal LVOT 2D LVOT Diameter 1.8 cm LVOT Doppler LVOT Peak Velocity 166 cm/s LVOT Peak Gradient 10 mmHg LVOT Mean Gradient 6 mmHg LVOT VTI 37 cm LVOT VTI/AV VTI Ratio 0.5 LVOT Stroke Volume 89 ml LVOT CO 12.7 l/min LVOT CI 7.4 l/min/m2 Pulmonic Valve Name Value Normal RVOT Doppler RVOT Peak Velocity 63 cm/s RVOT Peak Gradient 2 mmHg PV Doppler PV Peak Velocity 129 cm/s PV Peak Gradient 7 mmHg Mitral Valve Name Value Normal MV Regurgitation Doppler MR Peak Gradient 168 mmHg MV Diastolic Function MV E Peak Velocity 78 cm/s MV A Peak Velocity 97 cm/s MV E/A 0.8 MV Decel Time (PW) 310 ms MV Annular TDI MV E/e' (Septal) 9.8 MV E/e' (Lateral) 8.4 MV E/e' (Average) 9.1 Tricuspid Valve Name Value Normal TV Regurgitation Doppler TR Peak Velocity 323 cm/s TR Peak Gradient 42 mmHg Estimated PAP/RSVP RA Pressure 3 mmHg <=5 PA Systolic Pressure 45 mmHg <36 RV Systolic Pressure 45 mmHg <36 Aortic Valve Name Value Normal AV Doppler AV Peak Velocity 335 cm/s AV Peak Gradient 45 mmHg AV Mean Gradient 23 mmHg AV VTI 67 cm AV Area (Cont Eq VTI) 1.3 cm2 >=3.0 AV Area (Cont Eq Shaheen) 1.2 cm2 AV DI (Shaheen) 0.50 AV Regurgitation 2D LVOT Area 2.4 cm2 Ventricles Name Value Normal LV Dimensions 2D/MM IVS Diastolic Thickness (2D) 0.9 cm 0.6-1.0 LVID Diastole (2D) 4.2 cm 3.8-5.2 LVIW Diastolic Thickness (2D) 0.9 cm 0.6-0.9 LVID Systole (2D) 2.3 cm 2.2-3.5 LVOT Diameter 1.8 cm LV Mass (2D Cubed) 117.08 g 67.00-162.00 LV Mass Index (2D Cubed) 68 g/m2 43-95 Relative Wall Thickness (2D) 0.42 <=0.42 LV Fractional Shortening/Ejection Fraction 2D/MM LV Fractional Shortening (2D) 44 % 27-45 LV EF (2D Teichholz) 76 % LV Diastolic Volume (4C MOD) 83 ml LV EF (4C MOD) 62 % LV Diastolic Volume (2C MOD) 81 ml LV EF (2C MOD) 68 % LV Diastolic Volume (BP MOD) 83 ml 46-106 LV Diastolic Volume Index (BP MOD) 48 ml/m2 29-61 LV Systolic Volume (BP MOD) 29 ml 14-42 LV Systolic Volume Index (BP MOD) 17 ml/m2 8-24 LV EF (BP MOD) 65 % 54-74 LV Diastolic Length (4C) 7.8 cm LV Systolic Length (4C) 6.4 cm LV Stroke Volume (4C MOD) 52 ml Atria Name Value Normal LA Dimensions LA Volume (4C A-L) 34 ml LA Volume (BP A-L) 47 ml RA Dimensions RA Systolic Major Bowie Length (4C) 4.9 cm 2.2-2.8 RA Area (4C) 16.6 cm2 <=18.0 Report Signatures
== END 2024-12-10 09:30 | disposition home or self-care (01) ==
PROVIDERS: PCP Family Medicine; Visit Provider Physician Assistant
DX: R93.1 Abnormal findings on diagnostic imaging of heart and coronary circulation (principal); R01.1 Cardiac murmur, unspecified
CPT/HCPCS: 93306

== ENCOUNTER 2024-12-31 10:03 | Outpatient (CLI) | payer MEDICARE, SELFPAY ==
--- OUTSIDE RECORDS SUMMARY | 2024-12-31 10:14 | XMS_ITS | Clinical Summary ---
Author Organization [facility] Address [address] [facility] [place] [address] Care Team Providers Care Battery Loader Name Role Phone Agus Bolaños MD Primary Care Provider [phone] Source Comments [facility],non-owned Affiliates and Associated Physician Practices is amultiple site organization consisting of ambulatory clinics and hospital sitesin [place], [place], [place] and [place]. This disclosure is being madepursuant to the Care Everywhere program and may not contain all information available regarding this patient. Last updated 18.[facility] Allergies Active Allergy Reactions Criticality Noted Date [...] Description 12/03/2024 10:40 AM CDT Office Visit [facility] - Rheumatology [address] [place] [address] [address] [place] [address] Alfred De La Rosa DO Relapsing polychondritis (Primary Dx); Encounter for methotrexate monitoring; Normochromic normocytic anemia; Current chronic use of systemic steroids from Last 3 Months Family History Medical [...] Description 12/02/2025 11:00 AM CDT Office Visit [facility] - Rheumatology [address] [facility], [address] [place] [address] Alfred De La Rosa DO [address] [facility] [facility] [address] [place] [address] Health Maintenance Due Date Last [...] VACCINE (1 of 2) 10/31/2003 COVID-19 VACCINE ( - 2023- season) 2024 MEDICARE AWV CALENDAR YEAR 2024 [...] CDT LAB Routine 12/01/2024 11:41 AM CDT DEXA BONE DENSITY AXIAL SKELETON Routine 05/22/2024 Current chronic use of systemic steroids from Last 3 Months or Most Recently Relevant to Health Maintenance Results * LAB (12/01/2024 11:43 AM CDT) Only the most recent of2 resultswithin the time period is included. us Alfred De La Rosa DO SCANNING ONLY Final Result * DEXA BONE DENSITY AXIAL SKELETON (05/22/2024) Anatomical Region Laterality Modality Other us Alfred De La Rosa DO DEXA ORDERABLES Final Result from Last 3 Months or Most Recently Relevant to Health Maintenance Insurance [facility] MANAGED MEDICARE ADV Care Teams Battery Loader Relationship Specialty Start Date End Date Agus Bolaños MD [address] [facility] [address] [place] [address] PCP - General Family Medicine 12/05/23
--- OUTSIDE RECORDS SUMMARY | 2024-12-31 10:14 | XMS_ITS | Encounter Summary ---
Author Organization [facility] Address [address] [place] [address] Care Team Providers Care Knit Goods Cutter Hand Name Role Phone Agus Bolaños MD Primary Care Provider Encounter Details Date Type Department Care Team (Late st Contact Info) Description 04/25/2020 Prep for Procedure [facility] [address] [place], [place] [id number] Nba Yoon MD [address] [place] [id number] Social History Tobacco Use Types Packs/Day Years [...] CDT Gender Identity Female 06/06/2021 10:04 AM HAT FINISHING MATERIALS PREPARER Sexual Orientation Bisexual 06/06/2021 10 :04 AM HAT FINISHING MATERIALS PREPARER documented as of this encounter Plan of Treatment Not on file documented as of this encounter Results * (ABNORMAL) PRE-SURGICAL/PRE-PROCEDURE CORONAVIRUS (COVID 19) (05/01/2020 9:19 AM HAT FINISHING MATERIALS PREPARER) CORONAVIRUS SARS COV 2 PCR (RESP) DETECTED(A) NOT DETECTED 05/02/2020 5:46 PM HAT FINISHING MATERIALS PREPARER [facility] Comment: A Detected result is considered a [...] providers and patients using the following websites: https://www.[employer]/home/Covid-19/HCP/NAAT/fact-sheet2 https://www.[employer]/home/Covid-19/Patients/NAAT/ fact-sheet2 This test has been authorized by the FDA under an Emergency Use Authorization (EUA) for use by authorized laboratories. Due to the current public health emergency, [facility] is receiving a high volume of samples [...] about COVID-19 can be found at the [facility] website: www.[employer]pex/Covid19. Test performed at [facility] [place] [address] [place] [address] Director: ARMINDA DIAZ DO,MPH FIRST TEST UNKNOWN 05/01/2020 7:57 AM [facility] EMPLOYED IN HEALTHCARE NO 05/01/2020 7:57 AM [facility] SYMPTOMATIC DEFINED BY CDC NO 05/01/2020 7:57 AM [facility] DATE OF SYMPTOM ONSET UNKNOWN 05/01/2020 9:59 AM [facility] HOSPITALIZATION STATUS NO 05/01/2020 7:57 AM [facility] PATIENT IN ICU NO 05/01/2020 7:57 AM [facility] RESIDENT OF CONGREGATE CARE NO 05/01/2020 7:57 AM HAT FINISHING MATERIALS PREPARER [facility] UNKNOWN 05/01/2020 9:59 AM HAT FINISHING MATERIALS PREPARER [facility] PATIENT'S RACE WHITE OR 05/01/2020 7:57 AM HAT FINISHING MATERIALS PREPARER [facility] ETHNICITY NONHISPANIC 05/01/2020 7:57 AM HAT FINISHING MATERIALS PREPARER [facility] SOURCE (QST) NASOPHARYNGEAL SWAB 05/01/2020 7:57 AM HAT FINISHING MATERIALS PREPARER [facility] NASOPHARYNGEAL SWAB / Unknown 05/01/2020 9:19 AM HAT FINISHING MATERIALS PREPARER us Nba Yono MD MICROBIOLOGY - GENERAL ORDERABLE S Final Result Performing Organization Address [facility]State/[facility] Co de Phone Number [facility] [address] [place] [address], [facility] [address] [place] [address], documented in this encounter Visit Diagnoses Diagnosis Preop testing- Primary Preoperative examination, unspecified documented in this encounter Additional Health Concerns Infection Onset Date Last Indicated Resolved Time COVID-19 Rule Out 05/01/2020 05/01/2020 05/02/2020 5:46 PM HAT FINISHING MATERIALS PREPARER COVID-19 Confirmed 05/01/2020 05/01/2020 1 12:34 AM HAT FINISHING MATERIALS PREPARER documented as of this encounter Care Teams Knit Goods Cutter Hand Relationship Specialty Start Date End Date Agus Bolaños MD [address] [place] [address] PCP - General FAMILY PRACTICE 03/10/20 documented as of this encounter
--- OUTSIDE RECORDS SUMMARY | 2024-12-31 10:14 | XMS_ITS | Clinical Summary ---
Author Organization [facility] Address [address] [place] [address] Care Team Providers Care Carpenter Repairer Name Role Phone Agus Bolaños MD Primary Care Provider [phone] Allergies Active Allergy Reactions Criticality Noted Date [...] (03/18/2020): Added automatically from request for surgery [id number] Family history of colon cancer 03/18/2020 Overview (03/18/2020): Added automatically from request for surgery [id number] Family History Medical History Relation Comments CHF [...] CDT Gender Identity Female 06/06/2021 10:04 AM AIRCRAFT MECHANIC ARMAMENT Sexual Orientation Bisexual 06/06/2021 10 :04 AM AIRCRAFT MECHANIC ARMAMENT Last Filed Vital Signs Vital Sign Reading Time Taken Comments Blood Pressure 143/94 05/25/2024 7:53 AM AIRCRAFT MECHANIC ARMAMENT Pulse 74 05/25/2024 7:53 AM AIRCRAFT MECHANIC ARMAMENT Temperature 36.3 C (97.4 F) 05/25/2024 6:51 AM AIRCRAFT MECHANIC ARMAMENT Respiratory Rate 16 05/25/2024 7:53 AM AIRCRAFT MECHANIC ARMAMENT Oxygen Saturation 100% 05/25/2024 7:53 AM AIRCRAFT MECHANIC ARMAMENT Inhaled Oxygen Concentration - - Weight 60.8 kg (134 lb) 05/25/2024 6:51 AM AIRCRAFT MECHANIC ARMAMENT Height 170.2 cm (5' 7) 05/25/2024 6:51 AM AIRCRAFT MECHANIC ARMAMENT Body Mass Index 20.99 05/25/2024 6:51 AM AIRCRAFT MECHANIC ARMAMENT Plan of Treatment Health Maintenance Due Date [...] this topic Medical Devices Implanted Type Area Roving [address] Reporter Device Identifier Shelf Expiration Date Model / Serial / Lot Tecnis 1-Piece Iol With Tecnis Simplicity Delivery System Implanted:Qty: 1 on 05/25/2024 by Jones Aleman MD at [facility] 03/25/2025 / [id number] / Procedures Procedure Name Priority Date/Time Associated Diagnosis Comments COLONOSCOPY Routine AIRCRAFT MECHANIC ARMAMENT from Last 3 Months or Most Recently Relevant to Health Maintenance Results * Colonoscopy ( AIRCRAFT MECHANIC ARMAMENT) Narrative [employer] TO EPIC CONVERSION - AIRCRAFT MECHANIC ARMAMENT Documented hx of procedure Procedure Note Alize Shirley MD - 03/30/2018 Documented hx of procedure Generic Conversion Md SHIRLEY GI PROCEDURE ORDERABLES Final Result [facility] TO EPIC CONVERSION from Last 3 Months or Most Recently Relevant to Health Maintenance Insurance [facility] Care Teams Carpenter Repairer Relationship Specialty Start Date End Date Agus Bolaños MD [address] [place] [address] PCP - General FAMILY PRACTICE 03/10/20
--- OUTSIDE RECORDS SUMMARY | 2024-12-31 10:14 | XMS_ITS | Clinical Summary ---
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 For women [...] Most Recently Relevant to Health Maintenance Insurance [facility] MDCR HMO REF [facility] Address: [facility] [address] [place] [address] Care Teams Registered Nurse Obstetrics Relationship Specialty Start Date End Date Agus Bolaños MD [address] [facility] [address] [place] [address] PCP - General 06/03/19
[2024-12-31 11:06] LABS: Hematocrit 37.1 % (37.0-47.0); Hemoglobin 12.0 g/dL (12.0-15.0); Immature Granulocyte Percent A 0.4 % (0-0.5); Lymphocytes Absolute Auto 1.43 K/mm3 (0.9-3.2); Mean Corpuscular HGB Conc 32.3 g/dl (32-36); Mean Corpuscular Hemoglobin 31.3 pg (26-34); Mean Corpuscular Volume 96.6 fl (80-100); Nucleated Red Blood Cells Absolute Auto 0.000 K/mm3 (0.0-0.012); Nucleated Red Blood Cells Perc 0.0 % (0.0-0.2); Platelet Count Result 315 k/mm3 (150-375); Red Blood Count 3.84 M/mm3 (4.2-5.4); White Blood Count 6.8 K/mm3 (4.5-10.0)
[2024-12-31 11:28] LABS: Iron 75 ug/dL (37-170)
[2024-12-31 11:38] LABS: Percent Iron Saturation 24 % (20-50)
[2024-12-31 12:23] LABS: Ferritin 94.30 ng/mL (11.1-264)
== END 2024-12-31 10:04 | disposition home or self-care (01) ==
LOC: ANHLAB 10:05
PROVIDERS: PCP Family Medicine; Referring Provider Internal Medicine Rheumatology
DX: D64.9 Anemia, unspecified (principal); N18.30 Chronic kidney disease, stage 3 unspecified
CPT/HCPCS: 36415; 82728; 83540; 83550; 85025

== ENCOUNTER 2025-02-24 08:10 | Outpatient (CLI) | payer MEDICARE, SELFPAY ==
--- OUTSIDE RECORDS SUMMARY | 2025-02-24 08:23 | XMS_ITS | Encounter Summary ---
Author Organization [facility] Address [address] [place] [place] [address] Care Team Providers Care Charging Car Operator Name Role Phone Agus Bolaños MD Primary Care Provider [phone] Encounter Details Date Type Department Care Team (Late Contact Info) Description 02/19/2025 Orders Only [facility] - Rheumatology [facility] [employer] [facility], [address] [place] [address] [place] [address] [place] [address] [address] [place] [address] Encounter for methotrexate monitoring Social History Tobacco Use Types Packs/Day Years [...] on file Sexual Orientation Not on file documented as of this encounter Plan of Treatment Upcoming Encounters Date Type Department Care Team (Late Contact Info) Description 12/02/2025 11:00 AM CDT Office Visit [facility] - Rheumatology [address], [address] [place] [address] Alfred De La Rosa DO [address] [facility] [address] [place] [address] documented as of this encounter Visit Diagnoses Diagnosis Encounter for methotrexate monitoring documented in this encounter Care Teams Charging Car Operator Relationship Specialty Start Date End Date Agus Bolaños MD [address] [facility] [address] [place] [address] PCP - General Family Medicine 12/05/23 documented as of this encounter
--- OUTSIDE RECORDS SUMMARY | 2025-02-24 08:23 | XMS_ITS | Clinical Summary ---
Author Organization [facility] Address [address] [place] [address] Care Team Providers Care Toddler Caregiver Name Role Phone Agus Bolaños MD Primary Care Provider [phone] Source Comments [facility],non-owned Affiliates and Associated Physician Practices is amultiple site organization consisting of ambulatory clinics and hospital sitesin [place], [place], [place] and [place]. This disclosure is being madepursuant to the Care Everywhere program and may not contain all information available regarding this patient. Last updated 18.[facility] Allergies Active Allergy Reactions Criticality Noted Date [...] tablets by mouth daily with food Active folic acid (Folvite) 1 MG tabletIndications :Encounter for methotrexate monitoring Take 1 (one) tablet by mouth once daily Reduce the potential risk of methotrexate related side effects 90 tablet 3 12/04/19 25 Active predniSONE (Deltasone) 2.5 MG tabletIndications :relapsing polychondritis Take 1 (one) tablet by mouth every 2 days Reasons: relapsing polychondritis 45 tablet 1 02/09/20 25 Active methotrexate 2.5 MG tabletIndications :Relapsing polychondritis Take 3 (three) tablets by mouth every 7 days (once a week) Reasons: Relapsing polychondritis 12 tablet 02/09/20 25 Active predniSONE (Deltasone) 2.5 MG tabletIndications :relapsing polychondritis Take 1 (one) tablet by mouth every 2 days Reasons: relapsing polychondritis 45 tablet 1 12/04/19 25 025 Disconti nued(Reo rder) methotrexate 2.5 MG tabletIndications :Relapsing polychondritis Take 3 (three) tablets by mouth every 7 days (once a week) Reasons: Relapsing polychondritis 36 tablet 12/04/19 25 025 Disconti nued(Reo rder) Active Problems [...] of systemic steroids 024 Assessment & Plan (12/03/2024 11:20 AM CDT): [...] Encounters Date Type Department Care Team Description 02/19/2025 Orders Only [facility] - Rheumatology [address] [place] [address], [address] [address] Alfred De La Rosa DO Encounter for methotrexate monitoring 02/08/2025 Refill [facility] - Rheumatology [address] [place] [address], [address] [place] [id number] Alfred De La Rosa DO Refill Request 01/06/2025 Results Follow-Up [facility] - Rheumatology [address] [place] [address], [address] [place] [address] Alfred De La Rosa DO 12/03/2024 10:40 AM CDT Office Visit [facility] - Rheumatology [address] [place] [address], [facility] [address] [place] [address] Alfred De La Rosa DO Relapsing polychondritis [...] Description 12/02/2025 11:00 AM CDT Office Visit [facility] - Rheumatology [address] [facility], [address] [place] [address] Alfred De La Rosa DO [address] [facility] [address] [place] [address] Health Maintenance Due Date Last [...] 1972 ZOSTER VACCINE (1 of 2) 10/31/2003 MEDICARE AWV CALENDAR YEAR 2024 COVID-19 VACCINE ( - 2023- season) 2025 INFLUENZA VACCINE (#1) 2025 MAMMOGRAM 08/06/2026 08/06/2024, [...] CBC W DIFF (EXTERNAL RESULT ENTRY) Routine 12/31/2024 9:30 AM CDT FERRITIN Routine 12/31/2024 9:30 AM CDT IRON + TIBC PANEL Routine 12/31/2024 9:3 0 AM CDT LAB Routine 12/01/2024 11:43 AM CDT LAB Routine 12/01/2024 11:41 AM CDT DEXA BONE DENSITY AXIAL SKELETON Routine 05/22/2024 Current chronic use of systemic steroids from Last 3 Months or Most Recently Relevant to Health Maintenance Results * CBC W DIFF (EXTERNAL RESULT ENTRY) (12/31/2024 9:30 AM CDT) Blood BLOOD SPECIMEN / Unknown us Scanned Document LAB - HEMATOLOGY ORDERABLES Fin al Result * IRON + TIBC PANEL (12/31/2024 9:30 AM CDT) Blood BLOOD SPECIMEN / Unknown us Scanned Document LAB - CHEMISTRY ORDERABLES Otilia l Result * FERRITIN (12/31/2024 9:30 AM CDT) Blood BLOOD SPECIMEN / Unknown us Scanned Document LAB - CHEMISTRY ORDERABLES Otilia l Result * LAB (12/01/2024 11:43 AM CDT) Only the most recent of2 resultswithin the time period is included. Alfred De La Rosa DO SCANNING ONLY Final Result * DEXA BONE DENSITY AXIAL SKELETON (05/22/2024) Anatomical Region Laterality Modality Other Alfred De La Rosa DO DEXA ORDERABLES Final Result from Last 3 Months or Most Recently Relevant to Health Maintenance Insurance [facility] MANAGED MEDICARE ADV Care Teams Toddler Caregiver Relationship Specialty Start Date End Date Agus Bolaoñs MD [address] [place] [address] PCP - General Family Medicine 12/05/23
--- OUTSIDE RECORDS SUMMARY | 2025-02-24 08:23 | XMS_ITS | Encounter Summary ---
Author Organization [facility] Address [address] [place] [address] Care Team Providers Care Traffic Analysis Technician Name Role Phone Agus Bolaños MD Primary Care Provider [phone] Encounter Details Date Type Department Care Team (Late Contact Info) Description 01/06/2025 Results Follow-Up [facility] - Rheumatology [address] [place] [address], [address] [place] [address] [place] [address] [place] [address] [address] [place] [address] Social History Tobacco Use Types Packs/Day Years [...] Description 12/02/2025 11:00 AM CDT Office Visit [facility] - Rheumatology [address] [place] [address], [address] [place] [address] Alfred De La Rosa DO [address] [facility] [address] [place] [address] documented as of this encounter Visit Diagnoses Not on filedocumented in this encounter Care Teams Traffic Analysis Technician Relationship Specialty Start Date End Date Agus Bolaños MD [address] [facility] [address] [place] [address] PCP - General Family Medicine 12/05/23 documented as of this encounter
--- OUTSIDE RECORDS SUMMARY | 2025-02-24 08:23 | XMS_ITS | Clinical Summary ---
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 For women [...] Most Recently Relevant to Health Maintenance Insurance [facility] MDCR HMO REF [facility] MEDICARE Address: [facility] [address] [place] [address] Care Teams Screening Technician Relationship Specialty Start Date End Date Agus Bolaños MD [address] [facility] [address] [place] [address] PCP - General 06/03/19
[2025-02-24 08:48] LABS: Hematocrit 37.1 % (37.0-47.0); Hemoglobin 11.9 g/dL (12.0-15.0); Immature Granulocyte Percent A 0.3 % (0-0.5); Lymphocytes Absolute Auto 1.97 K/mm3 (0.9-3.2); Mean Corpuscular HGB Conc 32.1 g/dl (32-36); Mean Corpuscular Hemoglobin 31.5 pg (26-34); Mean Corpuscular Volume 98.1 fl (80-100); Nucleated Red Blood Cells Absolute Auto 0.000 K/mm3 (0.0-0.012); Nucleated Red Blood Cells Perc 0.0 % (0.0-0.2); Platelet Count Result 305 k/mm3 (150-375); Red Blood Count 3.78 M/mm3 (4.2-5.4); White Blood Count 7.5 K/mm3 (4.5-10.0)
[2025-02-24 09:25] LABS: Alanine Aminotransferase 24 U/L (6-35); Albumin Level 3.9 g/dL (3.5-5.1); Alkaline Phosphatase 56 U/L (38-126); Anion Gap 5 mmol/L (4-12); Aspartate Amino Transferase 30 U/L (14-36); Bilirubin,Total 0.3 mg/dL (0.2-1.3); Blood Urea Nitrogen 19 mg/dL (7-17); Calcium 8.8 mg/dL (8.4-10.2); Carbon Dioxide 28 mmol/L (22-30); Chloride 106 mmol/L (98-107); Estimated Glomerular Filt Rate 52; Glucose 115 mg/dL (65-110); Potassium 3.6 mmol/L (3.4-5.0); Sodium 139 mmol/L (137-145); Total Protein 6.6 g/dL (6.3-8.2)
== END 2025-02-24 08:11 | disposition home or self-care (01) ==
LOC: ANHLAB 08:13
PROVIDERS: PCP Family Medicine; Visit Provider Internal Medicine Rheumatology
DX: Z79.899 Other long term (current) drug therapy (principal)
CPT/HCPCS: 36415; 80053; 85025

== ENCOUNTER 2025-04-02 08:44 | Outpatient (CLI) | payer MEDICARE, SELFPAY ==
--- OUTSIDE RECORDS SUMMARY | 2025-04-02 09:06 | XMS_ITS | Clinical Summary ---
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 For women [...] Recently Relevant to Health Maintenance Insurance [facility] MDCR HMO REF Care Teams Environmental Air Specialist Relationship Specialty Start Date End Date Agus Bolaños MD [address] [facility] [address] [place] [address] PCP - General 06/03/19
--- OUTSIDE RECORDS SUMMARY | 2025-04-02 09:06 | XMS_ITS | Encounter Summary ---
Author Organization [facility] Address [address] [place] [address] Care Team Providers Care Sports Book Writer Name Role Phone Agus Bolaños MD Primary Care Provider [phone] Encounter Details Date Type Department Care Team (Late Contact Info) Description 02/26/2025 Results Follow-Up [facility] - Rheumatology [address] [place] [address], [address] [place] [address] [place] [address] [place] [address] [address] [place] [address] Social History Tobacco Use Types [...] Description 12/02/2025 11:00 AM CDT Office Visit [facility] - Rheumatology [address] [place] [address], [address] [place] [address] Alfred De La Rosa DO [address] [facility] [address] [place] [address] documented as of this encounter Visit Diagnoses Not on filedocumented in this encounter Care Teams Sports Book Writer Relationship Specialty Start Date End Date Agus Bolaños MD [address] [facility] [address] [place] [address] PCP - General Family Medicine 12/05/23 documented as of this encounter
--- OUTSIDE RECORDS SUMMARY | 2025-04-02 09:06 | XMS_ITS | Clinical Summary ---
Author Organization [facility] Address [address] [place] [address] Care Team Providers Care Government Guard Name Role Phone Agus Bolaños MD Primary Care Provider [phone] Allergies Active Allergy Reactions Criticality Noted Date [...] (03/18/2020): Added automatically from request for surgery [id number] Family history of colon cancer 03/18/2020 Overview (03/18/2020): Added automatically from request for surgery [id number] Family History Medical History Relation Comments CHF [...] CDT Gender Identity Female 06/06/2021 10:04 AM CODING AND REIMBURSEMENT SPECIALIST Sexual Orientation Bisexual 06/06/2021 10 :04 AM CODING AND REIMBURSEMENT SPECIALIST Last Filed Vital Signs Vital Sign Reading Time Taken Comments Blood Pressure 143/94 05/25/2024 7:53 AM CODING AND REIMBURSEMENT SPECIALIST Pulse 74 05/25/2024 7:53 AM CODING AND REIMBURSEMENT SPECIALIST Temperature 36.3 C (97.4 F) 05/25/2024 6:51 AM CODING AND REIMBURSEMENT SPECIALIST Respiratory Rate 16 05/25/2024 7:53 AM CODING AND REIMBURSEMENT SPECIALIST Oxygen Saturation 100% 05/25/2024 7:53 AM CODING AND REIMBURSEMENT SPECIALIST Inhaled Oxygen Concentration - - Weight 60.8 kg (134 lb) 05/25/2024 6:51 AM CODING AND REIMBURSEMENT SPECIALIST Height 170.2 cm (5' 7) 05/25/2024 6:51 AM CODING AND REIMBURSEMENT SPECIALIST Body Mass Index 20.99 05/25/2024 6:51 AM CODING AND REIMBURSEMENT SPECIALIST Plan of Treatment Health Maintenance Due Date Last Done Comments COVID-19 Vaccine (#1) 1960 Hepatitis C 10/31/1971 DTaP, Tdap and Td Vaccines (1 - Tdap) 1972 Zoster Vaccines (1 of 2) 10/31/2003 RSV Immunization or 60+ Years (1 - Risk 60-74 years 1-dose series) 2013 Pneumococcal Vaccine: 50+ Years (2 of 2 - PPSV23, PCV20, or PCV21) 04/24/2018 02/27/2018 Annual Medicare Wellness Visit 2018 Dexa Scan (General) 2018 Influenza Adult (#1) 2025 02/11/2019 Mammogram Screening 06/27/2025 06/27/2023, 06/21/2022, 06/14/2021, Additional history exists Colorectal Cancer Screening Colonoscopy (10 Years) 07/06/2030 07/06/2020, Hepatitis A Vaccines Aged Out No long er eligible based on patient's age to complete this topic Meningococcal B Vaccine Aged Out No l onger eligible based on patient's age to complete this topic Meningococcal Vaccine Aged Out No raul imtiaz eligible based on patient's age to complete this topic RSV Immunizations Under 20 Months Aged Out No longer eligible based on patient's age to complete this topic Medical Devices Implanted Type Area Roof Tiler Device Identifier Shelf Expiration Date Model / Serial / Lot Tecnis 1-Piece Iol With Tecnis Simplicity Delivery System Implanted:Qty: 1 on 05/25/2024 by Jones Aleman MD at [facility] [facility] 03/25/2025 / [id number] / Procedures Procedure Name Priority Date/Time Associated Diagnosis Comments COLONOSCOPY Routine CODING AND REIMBURSEMENT SPECIALIST from Last 3 Months or Most Recently Relevant to Health Maintenance Results * Colonoscopy ( CODING AND REIMBURSEMENT SPECIALIST) Narrative [employer] TO EPIC CONVERSION - CODING AND REIMBURSEMENT SPECIALIST Documented hx of procedure Procedure Note Alize Shirley MD - 03/30/2018 Documented hx of procedure us Generic Conversion Md SHIRLEY GI PROCEDURE ORDERABLES Final Result [employer] TO EPIC CONVERSION from Last 3 Months or Most Recently Relevant to Health Maintenance Insurance [facility] MEDICARE Care Teams Government Guard Relationship Specialty Start Date End Date Agus Bolaños MD [address] [place] [address] PCP - General FAMILY PRACTICE 03/10/20
--- OUTSIDE RECORDS SUMMARY | 2025-04-02 09:06 | XMS_ITS | Encounter Summary ---
Author Organization [facility] Address [address] [place] [address] Care Team Providers Care Radius Corner Machine Operator Name Role Phone Agus Bolaños MD Primary Care Provider [phone] Encounter Details Date Type Department Care Team (Late st Contact Info) Description 04/25/2020 Prep for Procedure [facility] [address] [place], [place] [id number] Nba Yoon MD [address] [place] [id number] Social History Tobacco Use Types Packs/Day Years [...] CDT Gender Identity Female 06/06/2021 10:04 AM [facility] Sexual Orientation Bisexual 06/06/2021 10 :04 AM [facility] documented as of this encounter Plan of Treatment Not on file documented as of this encounter Results * (ABNORMAL) PRE-SURGICAL/PRE-PROCEDURE CORONAVIRUS (COVID 19) (05/01/2020 9:19 AM [facility]) CORONAVIRUS SARS COV 2 PCR (RESP) DETECTED(A) NOT DETECTED 05/02/2020 5:46 PM [facility] Comment: A Detected result is considered a [...] providers and patients using the following websites: https://www.[employer]/home/Covid-19/HCP/NAAT/fact-sheet2 https://www.[employer]/home/Covid-19/Patients/NAAT/ fact-sheet2 This test has been authorized by the FDA under an Emergency Use Authorization (EUA) for use by authorized laboratories. Due to the current public health emergency, [facility] is receiving a high volume of samples [...] about COVID-19 can be found at the [facility] website: www.[employer]/Covid19. Test performed at [facility] [address] [place] [address] Director: ARMINDA DIAZ DO,MPH FIRST TEST UNKNOWN 05/01/2020 7:57 AM [facility] EMPLOYED IN HEALTHCARE NO 05/01/2020 7:57 AM [facility] SYMPTOMATIC DEFINED BY CDC NO 05/01/2020 7:57 AM [facility] DATE OF SYMPTOM ONSET UNKNOWN 05/01/2020 9:59 AM [facility] HOSPITALIZATION STATUS NO 05/01/2020 7:57 AM [facility] PATIENT IN ICU NO 05/01/2020 7:57 AM [facility] RESIDENT OF CONGREGATE CARE NO 05/01/2020 7:57 AM [facility] UNKNOWN 05/01/2020 9:59 AM [facility] PATIENT'S RACE WHITE OR 05/01/2020 7:57 AM [facility] ETHNICITY NONHISPANIC 05/01/2020 7:57 AM [facility] SOURCE (QST) NASOPHARYNGEAL SWAB 05/01/2020 7:57 AM [facility] NASOPHARYNGEAL SWAB / Unknown 05/01/2020 9:19 AM [facility] us bNa Yoon MD MICROBIOLOGY - GENERAL ORDERABLE S Final Result Performing Organization Address [facility]/State/[facility] Co de Phone Number [facility] [address] [place] [address], [facility] [address] [place] [address], documented in this encounter Visit Diagnoses Diagnosis Preop testing- Primary Preoperative examination, unspecified documented in this encounter Additional Health Concerns Infection Onset Date Last Indicated Resolved Time COVID-19 Rule Out 05/01/2020 05/01/2020 05/02/2020 5:46 PM [facility] COVID-19 Confirmed 05/01/2020 05/01/2020 1 12:34 AM [facility] documented as of this encounter Care Teams Radius Corner Machine Operator Relationship Specialty Start Date End Date Agus Bolaños MD [address] [place] [address] PCP - General FAMILY PRACTICE 03/10/20 documented as of this encounter
--- OUTSIDE RECORDS SUMMARY | 2025-04-02 09:06 | XMS_ITS | Clinical Summary ---
Author Organization [facility] Address [address] [place] [address] Care Team Providers Care Halal Butcher Name Role Phone Agus Bolaños MD Primary Care Provider [phone] Source Comments [facility],non-owned Affiliates and Associated Physician Practices is amultiple site organization consisting of ambulatory clinics and hospital sitesin [place], [place], [place] and [place]. This disclosure is being madepursuant to the Care Everywhere program and may not contain all information available regarding this patient. Last updated 18.[facility] Allergies Active Allergy Reactions Criticality Noted Date [...] food Active folic acid (Folvite) 1 MG tabletIndications: Encounter for methotrexate monitoring Take 1 (one) tablet by mouth once daily Reduce the potential risk of methotrexate related side effects 90 tablet 3 12/04/19 25 Active predniSONE (Deltasone) 2.5 MG tabletIndications: relapsing polychondritis Take 1 (one) tablet by mouth every 2 days Reasons: relapsing polychondritis 45 tablet 1 02/09/20 25 Active methotrexate 2.5 MG tabletIndications: Relapsing polychondritis Take 3 (three) tablets by mouth every 7 days (once a week) Reasons: Relapsing polychondritis 12 tablet 02/09/20 25 Active Active Problems Problem Noted Date [...] Encounters Date Type Department Care Team Description 02/26/2025 Results Follow-Up [facility] Rheumatology [address] [place] [address], [address] [place] [id number] Alfred De La Rosa DO 02/19/2025 Orders Only [address], [address] [place] [address] Alfred De La Rosa DO Encounter for methotrexate monitoring 02/08/[address], [address] [place] [address] Alfred De La Rosa DO Refill Request 01/06/2025 Results Follow-Up [facility] - [address], [address] [place] [address] Alfred De La Rosa DO from Last [...] Description 12/02/2025 11:00 AM CDT Office Visit [facility] - Rheumatology [address], [address] [place] [address] Alfred De La Rosa DO [address] [place] [address] Health Maintenance Due Date Last Done Comments COLOGUARD (AGES 45-75) - COLON CA SCREENING 1953 COLON MONITORING 1953 COLONOSCOPY - COLON CA SCREENING 1953 CT COLONOGRAPHY - COLON CA SCREENING 1953 Colorectal Cancer Screening 1953 FIT - COLON CA SCREENING 1953 FLEX SIG - COLON CA SCREENING 1953 LIPID TESTING 1953 COVID-19 VACCINE (#1) 1958 HEPATITIS C SCREENING 10/26/1971 DTAP/TDAP/TD VACCINES (1 - Tdap) 1972 PNEUMOCOCCAL VACCINE 50+ (1 of 2 - PCV) 1972 ZOSTER VACCINE (1 of 2) 10/31/2003 Respiratory Syncytial Virus (RSV) Vaccine Pt: or over 60 yrs (1 - Risk 60-74 years 1-dose series) 2013 MEDICARE AWV CALENDAR YEAR 2024 INFLUENZA VACCINE (#1) 2025 MAMMOGRAM 08/06/2026 08/06/2024, 07/25, 06/27/2023, Additional history exists BONE DENSITY TESTING Completed 05/22/2024 DEPRESSION SCREENING [...] Priority Date/Time Associated Diagnosis Comments CBC W AUTO DIFFERENTIAL Routine 02/26/2025 11:36 AM CDT Encounter for methotrexate monitoring CBC W DIFF (EXTERNAL RESULT ENTRY) Routine 12/31/2024 9:30 AM CDT FERRITIN Routine 12/31/2024 9:30 AM CDT IRON + TIBC PANEL Routine 12/31/2024 9:3 0 AM CDT DEXA BONE DENSITY AXIAL SKELETON Routine 05/22/2024 Current chronic use of systemic steroids from Last 3 Months or Most Recently Relevant to Health Maintenance Results * CBC WITH DIFFERENTIAL (02/26/2025 11:36 AM CDT) Blood BLOOD SPECIMEN / Unknown us Alfred De La Rosa DO LAB - HEMATOLOGY ORDERABLES Otilia l Result [facility] ACCOUNT BILL [address] [place] [address] * CBC W DIFF (EXTERNAL RESULT ENTRY) [...] Relevant to Health Maintenance Insurance Care Teams Halal Butcher Relationship Specialty Start Date End Date Agus Bolaños MD [address] [place] [address] PCP - General Family Medicine 12/05/23
[2025-04-02 10:06] LABS: Cholesterol 205 mg/dL (0-200); HDL Direct 66 mg/dL; Triglycerides 102 mg/dL (<150)
[2025-04-02 10:18] LABS: Add Urine Microscopic? YES; Appearance Urine Clear (Clear); Glucose Urine UA Negative (Negative); Leukocyte Esterase Ur 3+ LEU/UL (Negative); Nitrate Urine Positive (Negative); Non Pathogenic Casts 0-2; Specific Grav Ur 1.009 (1.001-1.035)
== END 2025-04-02 08:45 | disposition home or self-care (01) ==
PROVIDERS: PCP Family Medicine; Visit Provider Physician Assistant
DX: E05.90 Thyrotoxicosis, unspecified without thyrotoxic crisis or storm (principal); I10 Essential (primary) hypertension; M94.1 Relapsing polychondritis; R01.1 Cardiac murmur, unspecified; Z00.00 Encounter for general adult medical examination without abnormal findings
CPT/HCPCS: 36415; 80061; 81001